=== PATIENT | female | born 1965 | race Caucasian/White ===

== ENCOUNTER 2019-11-07 17:01 | Emergency (ER) | payer MEDICAID ==
[~2019-11-07] VITALS: Ht 172.7 cm; Wt 104.0 kg
[~2019-11-07 17:01] MED LIST: FOND2.5D3 SUBCUT; HYDR-4353 PO; LEVO200T42 PO; VENL150C2 PO
--- NOTE | 2019-11-07 19:50 | NUR ---
PT TO CT
[2019-11-07 20:29] LABS: BASOPHILS % (AUTO) 0.5 % (0-1); EOSINOPHILS # (AUTO) 0.1 X10'3 (0-0.9); EOSINOPHILS % (AUTO) 1.4 % (0-6); HEMATOCRIT 43.4 % (35.0-45.0); HEMOGLOBIN 14.7 g/dl (12.0-16.0); LYMPHOCYTES # (AUTO) 1.1 X10'3 (1.1-4.8); LYMPHOCYTES % (AUTO) 16.2 % (21-51); MEAN CORPUSCULAR HEMOGLOBIN 30.9 PG (27.0-31.0); MEAN CORPUSCULAR HGB CONC 33.8 g/dL (33.0-36.5); MEAN CORPUSCULAR VOLUME 91.2 FL (78-98); MEAN PLATELET VOLUME 8.9 FL (7.4-10.4); MONOCYTES # (AUTO) 0.8 X10'3 (0-0.9); MONOCYTES % (AUTO) 11.1 % (2-12); NEUTROPHILS # (AUTO) 4.8 X10'3 (1.8-7.7); NEUTROPHILS % (AUTO) 70.8 % (42-75); PLATELET COUNT 147 X10'3 (140-440); RED BLOOD COUNT 4.76 X10'6 (4.20-5.60); RED CELL DISTRIBUTION WIDTH 15.2 % (11.5-14.5); WHITE BLOOD COUNT 6.8 X10'3 (4.5-11.0)
[2019-11-07 20:48] LABS: ALANINE AMINOTRANSFERASE 28 U/L (12-78); ALBUMIN 3.7 G/DL (3.4-5.0); ALKALINE PHOSPHATASE 110 IU/L (46-116); ANION GAP 7 (8-16); ASPARTATE AMINO TRANSFERASE 23 U/L (10-37); BILIRUBIN,TOTAL 0.8 MG/DL (0.1-1.0); BLOOD UREA NITROGEN 11 MG/DL (7-18); BUN/CREATININE RATIO 14.1 (6.6-38.0); CALCIUM 8.9 MG/DL (8.5-10.1); CHLORIDE 106 MMOL/L (99-107); CREATININE 0.78 MG/DL (0.40-0.90); GLUCOSE 76 MG/DL (70-104); SODIUM 141 MMOL/L (135-145); TOTAL CARBON DIOXIDE 28.3 MMOL/L (24-32); TOTAL PROTEIN 7.5 G/DL (6.4-8.2); eGFR 77 ML/MIN
--- NOTE | 2019-11-07 21:01 | NUR ---
pt wanting to leave discharge is up awaiting paper work .
[2019-11-07 21:04] VITALS: BP 141/85
== END 2019-11-07 23:32 | disposition home or self-care (01) ==
LOC: ER 17:01
DX: S01.01XA Laceration without foreign body of scalp, initial encounter (principal); R55 Syncope and collapse; G89.29 Other chronic pain; Z98.0 Intestinal bypass and anastomosis status; Z98.890 Other specified postprocedural states; Z88.8 Allergy status to other drugs, medicaments and biological substances; Z79.899 Other long term (current) drug therapy; W18.11XA Fall from or off toilet without subsequent striking against object, initial encounter; Y93.89 Activity, other specified; Y92.89 Other specified places as the place of occurrence of the external cause; Y99.8 Other external cause status
CPT/HCPCS: 36415; 70450; 80053; 84484; 85025; 93005; 99285

== ENCOUNTER 2020-01-31 15:33 | Emergency (ER) | payer MEDICAID ==
[~2020-01-31] VITALS: Ht 172.7 cm; Wt 104.5 kg
[2020-01-31 16:07] VITALS: BP 140/90
[2020-01-31] MEDS ORDERED: HYDROcodone/acetaminophen 10/325mg tab PO ONE (17:25)
--- NOTE | 2020-01-31 17:28 | NUR ---
ADMIN PAIN MEDS ORDERED. LAB DRAW DONE.
[2020-01-31 17:39] LABS: BASOPHILS % (AUTO) 0.5 % (0-1); EOSINOPHILS # (AUTO) 0.1 X10'3 (0-0.9); HEMATOCRIT 43.4 % (35.0-45.0); HEMOGLOBIN 14.5 g/dl (12.0-16.0); LYMPHOCYTES # (AUTO) 1.2 X10'3 (1.1-4.8); LYMPHOCYTES % (AUTO) 16.2 % (21-51); MEAN CORPUSCULAR HEMOGLOBIN 30.9 PG (27.0-31.0); MEAN CORPUSCULAR HGB CONC 33.4 g/dL (33.0-36.5); MEAN CORPUSCULAR VOLUME 92.7 FL (78-98); MEAN PLATELET VOLUME 8.7 FL (7.4-10.4); MONOCYTES # (AUTO) 0.7 X10'3 (0-0.9); MONOCYTES % (AUTO) 9.7 % (2-12); NEUTROPHILS # (AUTO) 5.3 X10'3 (1.8-7.7); NEUTROPHILS % (AUTO) 71.6 % (42-75); PLATELET COUNT 167 X10'3 (140-440); RED BLOOD COUNT 4.68 X10'6 (4.20-5.60); RED CELL DISTRIBUTION WIDTH 13.9 % (11.5-14.5); WHITE BLOOD COUNT 7.5 X10'3 (4.5-11.0)
[2020-01-31 17:50] LABS: PARTIAL THROMBOPLASTIN TIME 23 SECONDS (22-32)
[2020-01-31 17:52] LABS: ALANINE AMINOTRANSFERASE 34 U/L (12-78); ALBUMIN 3.3 G/DL (3.4-5.0); ALBUMIN/GLOBULIN RATIO 0.9 (1.1-1.5); ALKALINE PHOSPHATASE 118 IU/L (46-116); ANION GAP 7 (8-16); ASPARTATE AMINO TRANSFERASE 29 U/L (10-37); BILIRUBIN,TOTAL 0.6 MG/DL (0.1-1.0); BLOOD UREA NITROGEN 7 MG/DL (7-18); BUN/CREATININE RATIO 7.1 (6.6-38.0); CALCIUM 8.3 MG/DL (8.5-10.1); CHLORIDE 107 MMOL/L (99-107); CREATININE 0.99 MG/DL (0.40-0.90); GLUCOSE 93 MG/DL (70-104); POTASSIUM 4.1 MMOL/L (3.5-5.1); SODIUM 142 MMOL/L (135-145); TOTAL CARBON DIOXIDE 28.1 MMOL/L (24-32); TOTAL PROTEIN 6.8 G/DL (6.4-8.2); eGFR 58 ML/MIN
[2020-01-31] MEDS ORDERED: apixaban 5mg tablet PO STA (18:50)
[2020-01-31] MEDS ORDERED: APIX5TAB3 PO ×2 (18:53)
[2020-01-31] MEDS ORDERED: HYDR-4353 PO (19:08)
== END 2020-01-31 19:12 | disposition home or self-care (01) ==
LOC: ER 15:34
DX: S70.11XA Contusion of right thigh, initial encounter (principal); M79.604 Pain in right leg; M79.89 Other specified soft tissue disorders; G89.29 Other chronic pain; F17.200 Nicotine dependence, unspecified, uncomplicated; Z98.890 Other specified postprocedural states; Z72.89 Other problems related to lifestyle; Z88.6 Allergy status to analgesic agent; Z79.899 Other long term (current) drug therapy; W01.0XXA Fall on same level from slipping, tripping and stumbling without subsequent striking against object, initial encounter; Y93.89 Activity, other specified; Y92.89 Other specified places as the place of occurrence of the external cause; Y99.8 Other external cause status
CPT/HCPCS: 36415; 80053; 85025; 85610; 85730; 93971; 99284

== ENCOUNTER 2020-03-21 04:13 | Emergency (ER) | payer MEDICAID ==
[~2020-03-21] VITALS: Ht 172.7 cm; Wt 100.0 kg
[~2020-03-21 04:13] MED LIST changes: +APIX5TAB3 PO
[2020-03-21] MEDS ORDERED: diphenhydrAMINE 50 mg/ml inj IV ONE (04:40)
[2020-03-21] MEDS ORDERED: LORazepam 2 mg/ml vial IV ONE (04:40)
[2020-03-21] MEDS ORDERED: normal saline 1000ML IV soln IVB ONE (04:40)
[2020-03-21] MEDS ORDERED: metoclopramide 5 mg/ml inj IV ONE (04:40)
[2020-03-21 05:22] LABS: BASOPHILS % (AUTO) 0.4 % (0-1); EOSINOPHILS # (AUTO) 0.1 X10'3 (0-0.9); EOSINOPHILS % (AUTO) 1.4 % (0-6); HEMATOCRIT 46.7 % (35.0-45.0); HEMOGLOBIN 15.3 g/dl (12.0-16.0); LYMPHOCYTES # (AUTO) 1.6 X10'3 (1.1-4.8); LYMPHOCYTES % (AUTO) 20.5 % (21-51); MEAN CORPUSCULAR HGB CONC 32.8 g/dL (33.0-36.5); MEAN CORPUSCULAR VOLUME 94.6 FL (78-98); MEAN PLATELET VOLUME 9.1 FL (7.4-10.4); MONOCYTES # (AUTO) 0.7 X10'3 (0-0.9); MONOCYTES % (AUTO) 9.1 % (2-12); NEUTROPHILS # (AUTO) 5.3 X10'3 (1.8-7.7); NEUTROPHILS % (AUTO) 68.6 % (42-75); PLATELET COUNT 256 X10'3 (140-440); RED BLOOD COUNT 4.93 X10'6 (4.20-5.60); RED CELL DISTRIBUTION WIDTH 14.8 % (11.5-14.5); WHITE BLOOD COUNT 7.8 X10'3 (4.5-11.0)
[2020-03-21 05:31] LABS: ALANINE AMINOTRANSFERASE 26 U/L (12-78); ALBUMIN 3.6 G/DL (3.4-5.0); ALBUMIN/GLOBULIN RATIO 0.9 (1.1-1.5); ALKALINE PHOSPHATASE 115 IU/L (46-116); ANION GAP 19 (8-16); ASPARTATE AMINO TRANSFERASE 25 U/L (10-37); BILIRUBIN,TOTAL 0.4 MG/DL (0.1-1.0); BLOOD UREA NITROGEN 10 MG/DL (7-18); BUN/CREATININE RATIO 10.5 (6.6-38.0); CALCIUM 8.5 MG/DL (8.5-10.1); CHLORIDE 103 MMOL/L (99-107); CREATININE 0.95 MG/DL (0.40-0.90); GLUCOSE 87 MG/DL (70-104); LIPASE 178 U/L (73-393); POTASSIUM 3.3 MMOL/L (3.5-5.1); SODIUM 138 MMOL/L (135-145); TOTAL CARBON DIOXIDE 16.2 MMOL/L (24-32); TOTAL PROTEIN 7.7 G/DL (6.4-8.2); eGFR 61 ML/MIN
[2020-03-21 06:29] VITALS: BP 135/95
== END 2020-03-21 06:30 | disposition home or self-care (01) ==
LOC: ER 04:14
DX: R19.7 Diarrhea, unspecified (principal); R11.0 Nausea; R10.9 Unspecified abdominal pain; G89.29 Other chronic pain; F17.210 Nicotine dependence, cigarettes, uncomplicated; Z90.49 Acquired absence of other specified parts of digestive tract; Z98.890 Other specified postprocedural states; Z88.8 Allergy status to other drugs, medicaments and biological substances; Z79.01 Long term (current) use of anticoagulants; Z79.899 Other long term (current) drug therapy; Z72.89 Other problems related to lifestyle
CPT/HCPCS: 36415; 74176; 80053; 83690; 84145; 85025; 96361; 96374; 96375; 99284; J1200; J2060; J2765; J7030

== ENCOUNTER 2020-04-16 18:09 | Emergency (ER) | payer MEDICAID ==
[~2020-04-16] VITALS: Ht 172.7 cm; Wt 99.1 kg
[2020-04-16 19:07] LABS: BASOPHILS % (AUTO) 0.7 % (0-1); EOSINOPHILS % (AUTO) 0.7 % (0-6); HEMATOCRIT 46.1 % (35.0-45.0); HEMOGLOBIN 15.5 g/dl (12.0-16.0); LYMPHOCYTES % (AUTO) 14.2 % (21-51); MEAN CORPUSCULAR HEMOGLOBIN 32.1 PG (27.0-31.0); MEAN CORPUSCULAR HGB CONC 33.6 g/dL (33.0-36.5); MEAN CORPUSCULAR VOLUME 95.5 FL (78-98); MEAN PLATELET VOLUME 9.2 FL (7.4-10.4); MONOCYTES # (AUTO) 0.8 X10'3 (0-0.9); MONOCYTES % (AUTO) 12.1 % (2-12); NEUTROPHILS % (AUTO) 72.3 % (42-75); PLATELET COUNT 156 X10'3 (140-440); RED BLOOD COUNT 4.83 X10'6 (4.20-5.60); RED CELL DISTRIBUTION WIDTH 14.3 % (11.5-14.5); WHITE BLOOD COUNT 6.8 X10'3 (4.5-11.0)
[2020-04-16 19:21] LABS: ALANINE AMINOTRANSFERASE 37 U/L (12-78); ALBUMIN 3.7 G/DL (3.4-5.0); ALKALINE PHOSPHATASE 137 IU/L (46-116); ANION GAP 9 (8-16); ASPARTATE AMINO TRANSFERASE 26 U/L (10-37); BLOOD UREA NITROGEN 7 MG/DL (7-18); BUN/CREATININE RATIO 8.1 (6.6-38.0); CALCIUM 9.2 MG/DL (8.5-10.1); CHLORIDE 104 MMOL/L (99-107); CREATININE 0.86 MG/DL (0.40-0.90); GLUCOSE 102 MG/DL (70-104); LIPASE 68 U/L (73-393); SODIUM 142 MMOL/L (135-145); TOTAL CARBON DIOXIDE 28.7 MMOL/L (24-32); TOTAL PROTEIN 7.3 G/DL (6.4-8.2); eGFR 69 ML/MIN
[2020-04-16 20:24] LABS: CLARITY,URINE CLEAR (Clear); COLOR,URINE YELLOW (Yellow); GLUCOSE, URINE NEGATIVE (Neg); KETONES,URINE NEGATIVE (Neg); LEUKOCYTE ESTERASE ,URINE NEGATIVE (Neg); NITRITES, URINE NEGATIVE (Neg); OCCULT BLOOD,URINE NEGATIVE (Neg); PH,URINE 5.5 (4.8-8.0); PROTEIN,URINE NEGATIVE (Neg); UROBILINOGEN,URINE 0.2 E.U/dL (0.2-1.0)
[2020-04-16 20:26] LABS: UA COLLECTION TYPE CLN CATCH MIDSTREAM
[2020-04-16] MEDS ORDERED: ondansetron 4mg rapidly disintigrating tab PO ONE (20:35)
[2020-04-16] MEDS ORDERED: morphine 4 MG/ML inj SYRINge IV ONE (20:35)
[2020-04-16] MEDS ORDERED: normal saline 1000ML IV soln IVB ONE (20:35)
[2020-04-16] MEDS ORDERED: iohexol 300mg/ml 100ml inj. ONE (21:24)
[2020-04-16] MEDS ORDERED: HYDR-3965 PO (23:00)
[2020-04-16] MEDS ORDERED: ONDA4TAB6 PO (23:00)
[2020-04-16 23:12] VITALS: BP 162/84
== END 2020-04-16 23:00 | disposition home or self-care (01) ==
LOC: ER 18:09
DX: R10.9 Unspecified abdominal pain (principal); R11.2 Nausea with vomiting, unspecified; R42 Dizziness and giddiness; G89.29 Other chronic pain; Z98.0 Intestinal bypass and anastomosis status; Z98.890 Other specified postprocedural states; Z88.8 Allergy status to other drugs, medicaments and biological substances; Z79.01 Long term (current) use of anticoagulants; Z79.899 Other long term (current) drug therapy
CPT/HCPCS: 36415; 74177; 80053; 81003; 83690; 85025; 96361; 96374; 99285; J2270; J7030; Q9967

== ENCOUNTER 2021-09-24 23:10 | Emergency (ER) | payer MEDICAID ==
[~2021-09-24] VITALS: Ht 172.7 cm; Wt 86.4 kg
[~2021-09-24 23:10] MED LIST changes: +ONDA4TAB6 PO
[2021-09-25 01:32] VITALS: BP 152/76
[2021-09-25 01:56] LABS: BASOPHILS # (AUTO) 0.1 X10'3 (0-0.2); BASOPHILS % (AUTO) 1.1 % (0-1); EOSINOPHILS # (AUTO) 0.1 X10'3 (0-0.9); EOSINOPHILS % (AUTO) 1.2 % (0-6); HEMATOCRIT 38.1 % (35.0-45.0); HEMOGLOBIN 12.5 g/dl (12.0-16.0); LYMPHOCYTES # (AUTO) 1.4 X10'3 (1.1-4.8); LYMPHOCYTES % (AUTO) 19.2 % (21-51); MEAN CORPUSCULAR HEMOGLOBIN 27.8 PG (27.0-31.0); MEAN CORPUSCULAR HGB CONC 32.8 g/dL (33.0-36.5); MEAN CORPUSCULAR VOLUME 84.6 FL (78-98); MEAN PLATELET VOLUME 10.1 FL (7.4-10.4); MONOCYTES # (AUTO) 0.6 X10'3 (0-0.9); MONOCYTES % (AUTO) 8.7 % (2-12); NEUTROPHILS % (AUTO) 69.8 % (42-75); PLATELET COUNT 198 X10'3 (140-440); RED CELL DISTRIBUTION WIDTH 14.5 % (11.5-14.5); WHITE BLOOD COUNT 7.2 X10'3 (4.5-11.0)
[2021-09-25 02:14] LABS: ALBUMIN 3.5 G/DL (3.4-5.0); ANION GAP 7 (8-16); BLOOD UREA NITROGEN 10 MG/DL (7-18); BUN/CREATININE RATIO 14.5 (6.6-38.0); CALCIUM 9.2 MG/DL (8.5-10.1); CHLORIDE 107 MMOL/L (99-107); CREATININE 0.69 MG/DL (0.40-0.90); GLUCOSE 83 MG/DL (70-104); POTASSIUM 3.3 MMOL/L (3.5-5.1); SODIUM 143 MMOL/L (135-145); TOTAL CARBON DIOXIDE 28.7 MMOL/L (24-32); eGFR 88 ML/MIN
[2021-09-25 02:17] LABS: APTT 26 SECONDS (22-32)
[2021-09-25] MEDS ORDERED: ondansetron/PF 4mg/2ml inj IV ONE (03:05)
[2021-09-25] MEDS ORDERED: morphine 4 MG/ML inj SYRINge IV ONE (03:05)
[2021-09-25] MEDS ORDERED: LIDOcaine 1% W/epiNEPHrine 1:100,000 20ml vial IJ ONE (03:15)
[2021-09-25] MEDS ORDERED: LIDOcaine 1% W/epiNEPHrine 1:200,000 10ml vial IJ ONE (03:15)
[2021-09-25 03:37] LABS: C-REACTIVE PROTEIN 0.32 MG/DL (0.0-0.5)
[2021-09-25] MEDS ORDERED: SULF1TAB49 PO ×2 (04:28→04:44)
[2021-09-25] MEDS ORDERED: sulfamethoxazole/trimethoprim DS (800/160mg) tablet PO ONE (04:30)
== END 2021-09-25 04:53 | disposition home or self-care (01) ==
LOC: ER 23:10
DX: L02.212 Cutaneous abscess of back [any part, except buttock and flank] (principal); M25.561 Pain in right knee; G89.29 Other chronic pain; Z98.890 Other specified postprocedural states; Z88.8 Allergy status to other drugs, medicaments and biological substances; Z79.2 Long term (current) use of antibiotics; Z79.899 Other long term (current) drug therapy
CPT/HCPCS: 10060; 36415; 80048; 85025; 85610; 85651; 85730; 86140; 96374; 96375; 99284; J2270; J2405

== ENCOUNTER 2022-09-14 13:26 | Outpatient (CLI) | payer MEDICAID ==
[~2022-09-14] VITALS: Ht 172.7 cm; Wt 95.3 kg
[~2022-09-14 13:26] MED LIST changes: +SULF1TAB49 PO; -VENL150C2 PO; +VENL150C4 PO
[2022-09-14] MEDS ORDERED: MECO10005 (14:29)
[2022-09-14] MEDS ORDERED: MULT-1133 PO (14:29)
[2022-09-14 14:39] LABS: BASOPHILS # (AUTO) 0.1 X10'3 (0-0.2); BASOPHILS % (AUTO) 0.8 % (0-1); EOSINOPHILS # (AUTO) 0.1 X10'3 (0-0.9); LYMPHOCYTES # (AUTO) 1.3 X10'3 (1.1-4.8); LYMPHOCYTES % (AUTO) 18.3 % (21-51); MEAN CORPUSCULAR HEMOGLOBIN 26.6 PG (27.0-31.0); MEAN CORPUSCULAR VOLUME 83.1 FL (78-98); MEAN PLATELET VOLUME 9.4 FL (7.4-10.4); MONOCYTES # (AUTO) 0.7 X10'3 (0-0.9); MONOCYTES % (AUTO) 9.3 % (2-12); NEUTROPHILS % (AUTO) 69.6 % (42-75); PRE OP HEMATOCRIT 38.8 % (35.0-45.0); PRE OP HEMOGLOBIN 12.4 g/dL (12.0-16.0); PRE OP PLATELET COUNT 189 X10'3 (140-440); RED BLOOD COUNT 4.67 X10'6 (4.20-5.60); RED CELL DISTRIBUTION WIDTH 14.5 % (11.5-14.5)
[2022-09-14 14:56] LABS: ALBUMIN 3.7 G/DL (3.4-5.0); ALBUMIN/GLOBULIN RATIO 1.1 (1.1-1.5); ALKALINE PHOSPHATASE 141 IU/L (46-116); BLOOD UREA NITROGEN 12 MG/DL (7-18); BUN/CREATININE RATIO 14.5 (6.6-38.0); CALCIUM 8.9 MG/DL (8.5-10.1); CHLORIDE 104 MMOL/L (99-107); CREATININE 0.83 MG/DL (0.40-0.90); PRE OP ALT 18 U/L (30-65); PRE OP ANION GAP 6 (8-16); PRE OP AST 21 U/L (10-37); PRE OP BILIRUB, TOTAL 0.5 MG/DL (0.0-1.0); PRE OP GLUCOSE 87 MG/DL (70-104); PRE OP POTASSIUM 4.1 MMOL/L (3.4-5.1); PRE OP SODIUM 141 MMOL/L (135-145); TOTAL CARBON DIOXIDE 30.7 MMOL/L (24-32); eGFR 71 ML/MIN
[2022-09-20] MEDS ORDERED: CYAN100T39 PO (20:22)
[2022-09-20] MEDS ORDERED: APIX5TAB3 PO (20:23)
[2022-09-21] MEDS ORDERED: ringers solution, lacted 1,000 ML IV SCH (05:00)
[2022-09-21] MEDS ORDERED: famotidine 20mg tablet PO ONE (05:30)
[2022-09-21] MEDS ORDERED: ceFAZolin inj. 2,000 MG in dextrose 5%-water 100 ML IV ONE (05:30)
== END 2022-09-14 23:59 | disposition home or self-care (01) ==
LOC: LAB 13:26 → EDSTATUS 09-21 09:30
PROVIDERS: ATTEND Orthopaedic Surgery Hand Surgery
DX: Z01.818 Encounter for other preprocedural examination (principal); G56.01 Carpal tunnel syndrome, right upper limb; M65.331 Trigger finger, right middle finger; F17.210 Nicotine dependence, cigarettes, uncomplicated; Z88.8 Allergy status to other drugs, medicaments and biological substances; Z90.710 Acquired absence of both cervix and uterus; Z98.84 Bariatric surgery status; Z98.890 Other specified postprocedural states; Z82.3 Family history of stroke; Z83.3 Family history of diabetes mellitus
CPT/HCPCS: 36415; 80053; 85025; 93005; J0690; J7060; J7120

== ENCOUNTER 2022-11-26 07:54 | Day surgery (SDC) | payer MEDICAID ==
[2022-11-23 15:52] LABS: BASOPHILS # (AUTO) 0.1 X10'3 (0-0.2); BASOPHILS % (AUTO) 0.6 % (0-1); EOSINOPHILS # (AUTO) 0.1 X10'3 (0-0.9); EOSINOPHILS % (AUTO) 1.7 % (0-6); LYMPHOCYTES # (AUTO) 1.3 X10'3 (1.1-4.8); MEAN CORPUSCULAR HGB CONC 32.6 g/dL (33.0-36.5); MEAN CORPUSCULAR VOLUME 82.9 FL (78-98); MONOCYTES # (AUTO) 0.7 X10'3 (0-0.9); MONOCYTES % (AUTO) 8.8 % (2-12); NEUTROPHILS # (AUTO) 6.3 X10'3 (1.8-7.7); NEUTROPHILS % (AUTO) 73.9 % (42-75); PRE OP HEMATOCRIT 39.5 % (35.0-45.0); PRE OP HEMOGLOBIN 12.9 g/dL (12.0-16.0); PRE OP PLATELET COUNT 179 X10'3 (140-440); RED BLOOD COUNT 4.77 X10'6 (4.20-5.60); RED CELL DISTRIBUTION WIDTH 16.2 % (11.5-14.5)
[2022-11-23 15:55] LABS: ALBUMIN 3.3 G/DL (3.4-5.0); ALBUMIN/GLOBULIN RATIO 0.9 (1.1-1.5); ALKALINE PHOSPHATASE 159 IU/L (46-116); BLOOD UREA NITROGEN 9 MG/DL (7-18); BUN/CREATININE RATIO 12.5 (10.0-20.0); CHLORIDE 105 MMOL/L (99-107); CREATININE 0.72 MG/DL (0.40-0.90); PRE OP ALT 28 U/L (30-65); PRE OP ANION GAP 5 (8-16); PRE OP AST 29 U/L (10-37); PRE OP BILIRUB, TOTAL 0.6 MG/DL (0.0-1.0); PRE OP GLUCOSE 103 MG/DL (70-104); PRE OP POTASSIUM 4.3 MMOL/L (3.4-5.1); PRE OP SODIUM 140 MMOL/L (135-145); TOTAL CARBON DIOXIDE 29.6 MMOL/L (24-32); TOTAL PROTEIN 6.8 G/DL (6.4-8.2); eGFR 83 ML/MIN
[2022-11-26] VITALS (11 sets, daily range): BP systolic 110–130; BP diastolic 53–72
[~2022-11-26] VITALS: Ht 172.7 cm; Wt 95.2 kg
[2022-11-26] MEDS: cefazolin 2gm/D5W 100mL 100 ML IV ONE (05:30)
[~2022-11-26 07:54] MED LIST changes: -FOND2.5D3 SUBCUT; -HYDR-4353 PO; -ONDA4TAB6 PO; -SULF1TAB49 PO
[2022-11-26] MEDS ORDERED: morphine 4 MG/ML inj SYRINge IV PRN (07:55)
[2022-11-26] MEDS ORDERED: ringers solution, lacted 1,000 ML IV SCH (07:55)
[2022-11-26] MEDS ORDERED: labetalol 5mg/ml 20ml inj. IV PRN (07:55)
[2022-11-26] MEDS ORDERED: ondansetron/PF 4mg/2ml inj IV PRN (07:55)
[2022-11-26] MEDS ORDERED: morphine 2 MG/ML inj. syringe IV PRN (07:55)
[2022-11-26] MEDS: famotidine 20mg tablet PO ONE (09:51)
[2022-11-26] MEDS: ringers solution, lacted 1,000 ML IV SCH (09:52)
[2022-11-26] MEDS: BUPIVAcaine/PF 2.5 mg/ml (0.25%) 30ml vial ONE (10:13)
[2022-11-26] MEDS ORDERED: fentaNYL/PF 50MCG/1 ML 2ML syringe ONE (10:33)
[2022-11-26] MEDS ORDERED: midazolam 1 mg/ML 2ml injection ONE ×2 (10:33→10:41)
[2022-11-26] MEDS ORDERED: LIDOcaine 0.5% (5mg/ml) 50ml vial ONE (10:48)
--- NOTE | 2022-11-26 10:59 | NUR ---
Received from OR via [facility] TO RECOVERY ROOM 6, accompanied by Anesthesiologist DR GARCIA and report given by Anesthesiolgist.PT PRESENTS WITH PIV 20G LEFT WRIST, RIGHT HAND DRESSING CDI,VSS. Addendum: 11/26/22 at 1112 by Fernanda Parham RN, RN Amended: Links added.
--- NOTE | 2022-11-26 12:29 | NUR ---
ABLE TO SAFELY AMBULATE AND TRANSFER SELF. IV TAKEN OUT WITHOUT ANY COMPLICATIONS. ALL DISCHARGE INSTRUCTIONS COVERED WITH PATIENT AND ALL QUESTIONS ANSWERED. PATIENT TAKEN OUT VIA WHEELCHAIR TO PERSONAL VEHICLE WHERE FAMILY/FRIEND DROVE PATIENT HOME. Addendum: 11/26/22 at 1245 by Fernanda Parham RN, RN Amended: Links added.
== END 2022-11-26 12:29 | disposition home or self-care (01) ==
LOC: PAS 07:54
PROVIDERS: ATTEND Orthopaedic Surgery Hand Surgery
DX: G56.01 Carpal tunnel syndrome, right upper limb (principal); M65.331 Trigger finger, right middle finger; M65.841 Other synovitis and tenosynovitis, right hand; Z79.899 Other long term (current) drug therapy; Z90.49 Acquired absence of other specified parts of digestive tract; Z88.8 Allergy status to other drugs, medicaments and biological substances; E03.9 Hypothyroidism, unspecified; F17.210 Nicotine dependence, cigarettes, uncomplicated; M19.90 Unspecified osteoarthritis, unspecified site; Z86.711 Personal history of pulmonary embolism; Z86.718 Personal history of other venous thrombosis and embolism
CPT/HCPCS: 26055; 29848; 36415; 80053; 82948; 85025; A6222; J0690; J2250; J3010; J3490; J7030; J7120; Z7506; Z7512; A4215; A7000

== ENCOUNTER 2023-04-19 07:10 | Day surgery (SDC) | payer MEDICAID ==
[2023-04-12 11:03] LABS: MEAN CORPUSCULAR HEMOGLOBIN 26.4 PG (27.0-31.0); PRE OP HEMOGLOBIN 12.3 g/dL (12.0-16.0)
[2023-04-12 11:04] LABS: BASOPHILS % (AUTO) 0.6 % (0-1); EOSINOPHILS # (AUTO) 0.2 X10'3 (0-0.9); EOSINOPHILS % (AUTO) 2.3 % (0-6); LYMPHOCYTES # (AUTO) 1.3 X10'3 (1.1-4.8); LYMPHOCYTES % (AUTO) 18.1 % (21-51); MEAN CORPUSCULAR HGB CONC 31.6 g/dL (33.0-36.5); MEAN CORPUSCULAR VOLUME 83.7 FL (78-98); MEAN PLATELET VOLUME 9.1 FL (7.4-10.4); MONOCYTES # (AUTO) 0.7 X10'3 (0-0.9); MONOCYTES % (AUTO) 10.3 % (2-12); NEUTROPHILS % (AUTO) 68.7 % (42-75); PRE OP PLATELET COUNT 174 X10'3 (140-440); PRE OP WHITE BLOOD COUNT 7.3 10'3 (4.8-10.8); RED BLOOD COUNT 4.66 X10'6 (4.20-5.60); RED CELL DISTRIBUTION WIDTH 15.1 % (11.5-14.5)
[2023-04-12 11:17] LABS: ALBUMIN 3.4 G/DL (3.4-5.0); ALBUMIN/GLOBULIN RATIO 0.9 (1.1-1.5); ALKALINE PHOSPHATASE 137 IU/L (46-116); BLOOD UREA NITROGEN 12 MG/DL (7-18); CALCIUM 8.6 MG/DL (8.5-10.1); CHLORIDE 107 MMOL/L (99-107); CREATININE 0.75 MG/DL (0.40-0.90); PRE OP ALT 28 U/L (30-65); PRE OP ANION GAP 8 (8-16); PRE OP AST 24 U/L (10-37); PRE OP BILIRUB, TOTAL 0.5 MG/DL (0.0-1.0); PRE OP GLUCOSE 97 MG/DL (70-104); PRE OP POTASSIUM 3.8 MMOL/L (3.4-5.1); PRE OP SODIUM 141 MMOL/L (135-145); TOTAL CARBON DIOXIDE 26.5 MMOL/L (24-32); eGFR 79 ML/MIN
[~2023-04-19] VITALS: Ht 172.7 cm; Wt 95.6 kg
[~2023-04-19 07:10] MED LIST changes: +BUPIVAcaine/PF 2.5mg/ml (0.25%) 10ml vial ONE; +albuterol 2.5 MG/3 ML nebule NEB ONE; +cefazolin 2gm/D5W 100mL 100 ML IV ONE; +famotidine 20mg tablet PO ONE; +ringers solution, lacted 1,000 ML IV SCH
[2023-04-19 09:00] VITALS: BP 121/73; PULSE 78; RESP 14; TEMP 97.2; O2SAT 100
[2023-04-19] MEDS ORDERED: MIDAZolam 5mg/ml 2ml vial IV ONE (09:20)
[2023-04-19] MEDS ORDERED: fentaNYL/PF 50MCG/1 ML 2ML syringe ONE (10:08)
[2023-04-19] MEDS ORDERED: MIDAZolam 1 MG/ML 5ML VIAL ONE (10:09)
[2023-04-19] MEDS ORDERED: LIDOcaine 0.5% (5mg/ml) 50ml vial ONE (10:24)
[2023-04-19 10:31] VITALS: BP 110/57; PULSE 75; RESP 16; O2SAT 97
--- NOTE | 2023-04-19 10:31 | NUR ---
Received from OR via [facility], accompanied by Anesthesiologist and report given by JOSE Anesthesiologist. PATIENT ALERT & AWAKE, DENIES PAIN, V/S WNL, PIV 20G TO RIGHT HAND, LEFT WRIST DRESSING C/D/I. ICE AND ELEVATED LUE. Addendum: 04/19/23 at 1051 by You Mooney RN Amended: Links added.
[2023-04-19 10:40] VITALS: BP 112/64; PULSE 84; RESP 20; O2SAT 95
[2023-04-19 10:50] VITALS: BP 121/64; PULSE 77; RESP 12; O2SAT 96
[2023-04-19 11:00] VITALS: BP 109/66; PULSE 73; RESP 14; O2SAT 96
--- NOTE | 2023-04-19 11:01 | NUR ---
ALL DISCHARGE CRITERIA HAS BEEN MET. VSS, PAIN AT A TOLERABLE LEVEL, ABLE TO SAFELY AMBULATE AND TRANSFER SELF. IV TAKEN OUT WITHOUT ANY COMPLICATIONS. ALL DISCHARGE INSTRUCTIONS COVERED WITH PATIENT AND ALL QUESTIONS ANSWERED. PATIENT TAKEN OUT VIA WHEELCHAIR WITH ALL BELONGINGS TO PERSONAL VEHICLE WHERE FRIEND DROVE PATIENT HOME. Addendum: 04/19/23 at 1141 by You Mooney RN Amended: Links added.
== END 2023-04-19 11:01 | disposition home or self-care (01) ==
LOC: PAS 07:10
PROVIDERS: ATTEND Orthopaedic Surgery Hand Surgery
DX: G56.02 Carpal tunnel syndrome, left upper limb (principal); E03.9 Hypothyroidism, unspecified; M19.90 Unspecified osteoarthritis, unspecified site; E66.9 Obesity, unspecified; Z68.32 Body mass index [BMI] 32.0-32.9, adult; Z79.899 Other long term (current) drug therapy; Z88.8 Allergy status to other drugs, medicaments and biological substances; Z87.891 Personal history of nicotine dependence; Z90.49 Acquired absence of other specified parts of digestive tract; Z90.710 Acquired absence of both cervix and uterus; Z98.890 Other specified postprocedural states; Z86.718 Personal history of other venous thrombosis and embolism; Z86.711 Personal history of pulmonary embolism; Z79.01 Long term (current) use of anticoagulants
CPT/HCPCS: 36415; 64721; 80053; 82948; 85025; 93005; J0690; J2250; J3010; J3490; J7030; J7120; Z7506; Z7512; A4215; A7000

== ENCOUNTER 2023-08-05 04:27 | Inpatient (IN) | payer MEDICAID ==
[2023-08-05] VITALS (9 sets, daily range): BP systolic 124–144; BP diastolic 55–73; PULSE 64–89; RESP 10–27; TEMP 96.8; O2SAT 97–100
[~2023-08-05] VITALS: Ht 172.7 cm; Wt 107.0 kg
[~2023-08-05 04:27] MED LIST changes: -BUPIVAcaine/PF 2.5mg/ml (0.25%) 10ml vial ONE; -albuterol 2.5 MG/3 ML nebule NEB ONE; -cefazolin 2gm/D5W 100mL 100 ML IV ONE; -famotidine 20mg tablet PO ONE; -ringers solution, lacted 1,000 ML IV SCH
[2023-08-05] MEDS ORDERED: normal saline 1000ml 1,000 ML IV ONE ×3 (04:50→06:30)
[2023-08-05 04:52] LABS: BASOPHILS # (AUTO) 0.1 X10'3 (0-0.2); BASOPHILS % (AUTO) 0.8 % (0-1); EOSINOPHILS # (AUTO) 0.2 X10'3 (0-0.9); EOSINOPHILS % (AUTO) 1.8 % (0-6); HEMATOCRIT 41.5 % (35.0-45.0); HEMOGLOBIN 13.3 g/dl (12.0-16.0); LYMPHOCYTES # (AUTO) 3.5 X10'3 (1.1-4.8); LYMPHOCYTES % (AUTO) 33.9 % (21-51); MEAN CORPUSCULAR HEMOGLOBIN 27.2 PG (27.0-31.0); MEAN CORPUSCULAR HGB CONC 32.1 g/dL (33.0-36.5); MEAN CORPUSCULAR VOLUME 84.7 FL (78-98); MEAN PLATELET VOLUME 8.5 FL (7.4-10.4); MONOCYTES % (AUTO) 9.9 % (2-12); NEUTROPHILS # (AUTO) 5.5 X10'3 (1.8-7.7); NEUTROPHILS % (AUTO) 53.6 % (42-75); PLATELET COUNT 198 X10'3 (140-440); RED CELL DISTRIBUTION WIDTH 15.9 % (11.5-14.5); WHITE BLOOD COUNT 10.2 X10'3 (4.5-11.0)
[2023-08-05] MEDS ORDERED: magnesium 2GM in 50ml NS 50 ML IV ONE (05:00)
[2023-08-05 05:04] LABS: ALANINE AMINOTRANSFERASE 18 U/L (12-78); ALBUMIN 3.4 G/DL (3.4-5.0); ALBUMIN/GLOBULIN RATIO 0.9 (1.1-1.5); ALKALINE PHOSPHATASE 107 IU/L (46-116); ANION GAP 16 (8-16); ASPARTATE AMINO TRANSFERASE 21 U/L (10-37); BILIRUBIN,TOTAL 0.3 MG/DL (0.1-1.0); BLOOD UREA NITROGEN 9 MG/DL (7-18); BUN/CREATININE RATIO 12.9 (10.0-20.0); CALCIUM 8.3 MG/DL (8.5-10.1); CHLORIDE 106 MMOL/L (99-107); GLUCOSE 97 MG/DL (70-104); POTASSIUM 3.1 MMOL/L (3.5-5.1); SODIUM 142 MMOL/L (135-145); TOTAL CARBON DIOXIDE 19.7 MMOL/L (24-32); TOTAL PROTEIN 7.1 G/DL (6.4-8.2); eCRCL 88 ML/MIN; eGFR 86 ML/MIN
[2023-08-05 05:13] LABS: ETHANOL 262 MG/DL (<10); PRO BRAIN NATRIURETIC PEPTIDE 102 PG/ML (0-125); SALICYLATE 4.3 MG/DL (4.0-20.0); THYROID STIMULATING HORMONE 27.67 ulU/ml (0.34-4.50)
[2023-08-05 05:14] LABS: ACETAMINOPHEN < 2.0 UG/ML (10-30)
[2023-08-05] MEDS ORDERED: potassium Cl 20 mEq SR tablet PO STA (05:43)
[2023-08-05] MEDS ORDERED: LidoCAINE 2% Topical Jelly 11mL syringe TOP ONE ×2 (06:30→11:05)
[2023-08-05 06:43] LABS: URINE AMPHETAMINE SCREEN NEGATIVE (Neg); URINE BARBITUATE SCREEN NEGATIVE (Neg); URINE BENZODIAZEPINES SCREEN NEGATIVE (Neg); URINE CANNABINOID SCREEN NEGATIVE (Neg); URINE COCAINE SCREEN NEGATIVE (Neg); URINE METHADONE SCREEN NEGATIVE (Neg); URINE OPIATE SCREEN NEGATIVE (Neg); URINE PHENCYCLIDINE SCREEN NEGATIVE (Neg)
[2023-08-05 06:53] LABS: MAGNESIUM 1.8 MG/DL (1.5-2.4)
[2023-08-05] MEDS ORDERED: normal saline 1000ML IV soln IVB ONE ×2 (09:50→11:00)
[2023-08-05 10:07] LABS: ACETAMINOPHEN < 2.0 UG/ML (10-30); ALANINE AMINOTRANSFERASE 17 U/L (12-78); ALBUMIN 2.7 G/DL (3.4-5.0); ALBUMIN/GLOBULIN RATIO 0.9 (1.1-1.5); ALKALINE PHOSPHATASE 84 IU/L (46-116); ANION GAP 12 (8-16); ASPARTATE AMINO TRANSFERASE 14 U/L (10-37); BILIRUBIN,TOTAL 0.3 MG/DL (0.1-1.0); BLOOD UREA NITROGEN 7 MG/DL (7-18); BUN/CREATININE RATIO 10.3 (10.0-20.0); CALCIUM 7.1 MG/DL (8.5-10.1); CHLORIDE 114 MMOL/L (99-107); CREATININE 0.68 MG/DL (0.40-0.90); ETHANOL 165 MG/DL (<10); GLUCOSE 101 MG/DL (70-104); POTASSIUM 3.4 MMOL/L (3.5-5.1); SALICYLATE 3.6 MG/DL (4.0-20.0); SODIUM 148 MMOL/L (135-145); TOTAL CARBON DIOXIDE 21.6 MMOL/L (24-32); TOTAL PROTEIN 5.7 G/DL (6.4-8.2); eCRCL 91 ML/MIN; eGFR 89 ML/MIN
[2023-08-05] MEDS ORDERED: acetaminophen 325mg tablet PO PRN ×2 (11:05)
[2023-08-05] MEDS ORDERED: morphine 4 MG/ML inj SYRINge IV PRN (11:05)
[2023-08-05] MEDS ORDERED: ondansetron/PF 4mg/2ml inj IV PRN (11:05)
[2023-08-05] MEDS ORDERED: magnesium hydroxide 30ml (MOM) UD suspension PO PRN (11:05)
[2023-08-05] MEDS: ringers solution, lacted 1,000 ML IV SCH ×2 (11:10→17:11)
[2023-08-05 11:28] LABS: FREE T4 (FREE THYROXINE) 0.65 NG/DL (0.73-1.40)
[2023-08-05] MEDS ORDERED: thiamine 100mg/ml 2ml inj. IM ONE (11:35)
[2023-08-05] MEDS ORDERED: thiamine 100mg/ml 2ml inj. IV ONE (12:10)
[2023-08-05] MEDS ORDERED: magnesium 4gm in 100ml NS 100 ML IV PRN (12:40)
[2023-08-05] MEDS ORDERED: potassium Cl 20 mEq SR tablet PO PRN ×2 (12:40)
[2023-08-05] MEDS ORDERED: magnesium 2GM in 50ml NS 50 ML IV PRN (12:40)
[2023-08-05] MEDS: apixaban 5mg tablet PO SCH (20:34)
[2023-08-05] MEDS ORDERED: LORazepam 2 mg/ml vial IV PRN (21:05)
[2023-08-06] VITALS (19 sets, daily range): BP systolic 121–158; BP diastolic 50–88; PULSE 66–96; RESP 11–29; O2SAT 93–99
[2023-08-06] MEDS: ringers solution, lacted 1,000 ML IV SCH (00:04)
[2023-08-06] MEDS: morphine 2 MG/ML inj. syringe IV PRN ×3 (02:37→19:09)
[2023-08-06 06:23] LABS: BASOPHILS % (AUTO) 0.6 % (0-1); EOSINOPHILS # (AUTO) 0.1 X10'3 (0-0.9); EOSINOPHILS % (AUTO) 2.5 % (0-6); HEMATOCRIT 33.4 % (35.0-45.0); LYMPHOCYTES # (AUTO) 1.8 X10'3 (1.1-4.8); LYMPHOCYTES % (AUTO) 31.3 % (21-51); MEAN CORPUSCULAR HEMOGLOBIN 28.2 PG (27.0-31.0); MEAN CORPUSCULAR VOLUME 85.3 FL (78-98); MONOCYTES # (AUTO) 0.5 X10'3 (0-0.9); MONOCYTES % (AUTO) 8.4 % (2-12); NEUTROPHILS # (AUTO) 3.3 X10'3 (1.8-7.7); NEUTROPHILS % (AUTO) 57.2 % (42-75); PLATELET COUNT 122 X10'3 (140-440); RED BLOOD COUNT 3.91 X10'6 (4.20-5.60); RED CELL DISTRIBUTION WIDTH 15.6 % (11.5-14.5); WHITE BLOOD COUNT 5.7 X10'3 (4.5-11.0)
[2023-08-06 06:29] LABS: INR 1.1 INR; PROTHROMBIN TIME 11.4 SECONDS (9.0-12.0)
[2023-08-06 06:39] LABS: ALANINE AMINOTRANSFERASE 17 U/L (12-78); ALBUMIN 2.6 G/DL (3.4-5.0); ALBUMIN/GLOBULIN RATIO 0.9 (1.1-1.5); ALKALINE PHOSPHATASE 88 IU/L (46-116); AMYLASE 34 U/L (25-115); ANION GAP 9 (8-16); ASPARTATE AMINO TRANSFERASE 15 U/L (10-37); BILIRUBIN,TOTAL 0.7 MG/DL (0.1-1.0); BLOOD UREA NITROGEN 10 MG/DL (7-18); CALCIUM 7.9 MG/DL (8.5-10.1); CHLORIDE 112 MMOL/L (99-107); CREATININE 0.77 MG/DL (0.40-0.90); GLUCOSE 83 MG/DL (70-104); LIPASE 10 U/L (16-77); MAGNESIUM 1.7 MG/DL (1.5-2.4); PHOSPHORUS 3.2 MG/DL (2.3-4.5); POTASSIUM 3.9 MMOL/L (3.5-5.1); SODIUM 144 MMOL/L (135-145); TOTAL CARBON DIOXIDE 22.8 MMOL/L (24-32); TOTAL PROTEIN 5.4 G/DL (6.4-8.2); eCRCL 80 ML/MIN; eGFR 77 ML/MIN
[2023-08-06] MEDS: apixaban 5mg tablet PO SCH ×2 (07:24→19:09)
[2023-08-06] MEDS: levoTHYROXINE 175mcg tablet PO SCH (07:24)
[2023-08-06] MEDS: venlafaxine XR 75mg capsule (Q24H) PO SCH (07:24)
[2023-08-06] MEDS: K and/or MAG REPLACEMENT MC SCH (08:00)
[2023-08-06] MEDS ORDERED: FLU VACC QS2023-24(6MOS UP)/PF 60 MCG/0.5 ML SYRINGE IM ONE (12:00)
[2023-08-06] MEDS ORDERED: LORazepam 2 mg/ml vial IV PRN (14:50)
[2023-08-06] MEDS ORDERED: haloperidol lactate 5mg/ml inj IM PRN (14:50)
[2023-08-06] MEDS ORDERED: haloperidol 5mg tablet PO PRN (14:50)
[2023-08-06] MEDS: LORazepam 1 MG tablet PO PRN (19:10)
[2023-08-06] MEDS: thiamine 100mg/ml 2ml inj. IV SCH (21:32)
[2023-08-07] VITALS (7 sets, daily range): BP systolic 109–152; BP diastolic 53–63; PULSE 63–71; RESP 13–24; O2SAT 93–98
[2023-08-07] MEDS: morphine 2 MG/ML inj. syringe IV PRN ×2 (02:50→19:31)
[2023-08-07 06:16] LABS: PROTHROMBIN TIME 11.1 SECONDS (9.0-12.0)
[2023-08-07 06:28] LABS: BASOPHILS # (AUTO) 0.1 X10'3 (0-0.2); BASOPHILS % (AUTO) 1.4 % (0-1); EOSINOPHILS # (AUTO) 0.1 X10'3 (0-0.9); EOSINOPHILS % (AUTO) 2.3 % (0-6); HEMATOCRIT 35.5 % (35.0-45.0); HEMOGLOBIN 11.5 g/dl (12.0-16.0); LYMPHOCYTES # (AUTO) 1.5 X10'3 (1.1-4.8); LYMPHOCYTES % (AUTO) 26.5 % (21-51); MEAN CORPUSCULAR HEMOGLOBIN 27.6 PG (27.0-31.0); MEAN CORPUSCULAR HGB CONC 32.3 g/dL (33.0-36.5); MEAN CORPUSCULAR VOLUME 85.3 FL (78-98); MEAN PLATELET VOLUME 9.2 FL (7.4-10.4); MONOCYTES # (AUTO) 0.5 X10'3 (0-0.9); MONOCYTES % (AUTO) 8.9 % (2-12); NEUTROPHILS # (AUTO) 3.5 X10'3 (1.8-7.7); NEUTROPHILS % (AUTO) 60.9 % (42-75); PLATELET COUNT 120 X10'3 (140-440); RED BLOOD COUNT 4.16 X10'6 (4.20-5.60); RED CELL DISTRIBUTION WIDTH 15.3 % (11.5-14.5); WHITE BLOOD COUNT 5.8 X10'3 (4.5-11.0)
[2023-08-07 06:29] LABS: ALANINE AMINOTRANSFERASE 13 U/L (12-78); ALBUMIN 2.8 G/DL (3.4-5.0); ALBUMIN/GLOBULIN RATIO 0.9 (1.1-1.5); ALKALINE PHOSPHATASE 114 IU/L (46-116); AMYLASE 32 U/L (25-115); ANION GAP 7 (8-16); ASPARTATE AMINO TRANSFERASE 20 U/L (10-37); BILIRUBIN,TOTAL 0.9 MG/DL (0.1-1.0); BLOOD UREA NITROGEN 9 MG/DL (7-18); BUN/CREATININE RATIO 12.5 (10.0-20.0); CALCIUM 8.4 MG/DL (8.5-10.1); CHLORIDE 108 MMOL/L (99-107); CREATININE 0.72 MG/DL (0.40-0.90); GLUCOSE 94 MG/DL (70-104); LIPASE 10 U/L (16-77); MAGNESIUM 1.7 MG/DL (1.5-2.4); POTASSIUM 4.1 MMOL/L (3.5-5.1); SODIUM 140 MMOL/L (135-145); TOTAL PROTEIN 5.9 G/DL (6.4-8.2); eCRCL 86 ML/MIN; eGFR 83 ML/MIN
[2023-08-07] MEDS: venlafaxine XR 75mg capsule (Q24H) PO SCH (07:10)
[2023-08-07] MEDS: levoTHYROXINE 175mcg tablet PO SCH (07:10)
[2023-08-07] MEDS: multivitamins, therapeutics tablet PO SCH (07:10)
[2023-08-07] MEDS: apixaban 5mg tablet PO SCH ×2 (07:10→19:30)
[2023-08-07] MEDS: folic acid 1mg/0.2ml inj IV SCH (07:11)
[2023-08-07] MEDS: thiamine 100mg/ml 2ml inj. IV SCH ×3 (07:11→19:30)
[2023-08-07] MEDS: K and/or MAG REPLACEMENT MC SCH (08:00)
[2023-08-07] MEDS: LORazepam 1 MG tablet PO PRN ×2 (10:50→19:30)
[2023-08-08] MEDS: LORazepam 1 MG tablet PO PRN ×2 (00:03→07:17)
[2023-08-08] MEDS: morphine 2 MG/ML inj. syringe IV PRN ×2 (00:04→05:39)
[2023-08-08 00:06] LABS: URINE HCG NEGATIVE (NEG)
[2023-08-08 00:08] VITALS: BP 138/63; PULSE 75; RESP 16; O2SAT 98
[2023-08-08 00:45] LABS: BILIRUBIN,URINE NEGATIVE (Neg); CLARITY,URINE CLEAR (Clear); COLOR,URINE STRAW (Yellow); GLUCOSE, URINE NEGATIVE (Neg); KETONES,URINE NEGATIVE (Neg); LEUKOCYTE ESTERASE ,URINE NEGATIVE (Neg); NITRITES, URINE NEGATIVE (Neg); OCCULT BLOOD,URINE NEGATIVE (Neg); PROTEIN,URINE NEGATIVE (Neg); UROBILINOGEN,URINE 0.2 E.U/dL (0.2-1.0)
[2023-08-08 00:49] LABS: UA COLLECTION TYPE NON-SPECIFIED
[2023-08-08 04:00] VITALS: BP 128/69; PULSE 70; RESP 16; O2SAT 95
[2023-08-08 06:18] LABS: BASOPHILS # (AUTO) 0.1 X10'3 (0-0.2); BASOPHILS % (AUTO) 1.1 % (0-1); EOSINOPHILS # (AUTO) 0.2 X10'3 (0-0.9); EOSINOPHILS % (AUTO) 2.6 % (0-6); HEMOGLOBIN 11.7 g/dl (12.0-16.0); LYMPHOCYTES # (AUTO) 1.9 X10'3 (1.1-4.8); LYMPHOCYTES % (AUTO) 26.5 % (21-51); MEAN CORPUSCULAR HGB CONC 32.5 g/dL (33.0-36.5); MEAN CORPUSCULAR VOLUME 86.1 FL (78-98); MEAN PLATELET VOLUME 9.1 FL (7.4-10.4); MONOCYTES # (AUTO) 0.6 X10'3 (0-0.9); MONOCYTES % (AUTO) 8.8 % (2-12); NEUTROPHILS # (AUTO) 4.3 X10'3 (1.8-7.7); PLATELET COUNT 133 X10'3 (140-440); RED BLOOD COUNT 4.19 X10'6 (4.20-5.60); RED CELL DISTRIBUTION WIDTH 15.3 % (11.5-14.5); WHITE BLOOD COUNT 7.1 X10'3 (4.5-11.0)
[2023-08-08 06:19] LABS: INR 1.1 INR; PROTHROMBIN TIME 11.3 SECONDS (9.0-12.0)
[2023-08-08 06:29] LABS: ALANINE AMINOTRANSFERASE 14 U/L (12-78); ALBUMIN 2.8 G/DL (3.4-5.0); ALBUMIN/GLOBULIN RATIO 0.9 (1.1-1.5); ALKALINE PHOSPHATASE 104 IU/L (46-116); AMYLASE 32 U/L (25-115); ANION GAP 7 (8-16); ASPARTATE AMINO TRANSFERASE 17 U/L (10-37); BILIRUBIN,TOTAL 0.6 MG/DL (0.1-1.0); BLOOD UREA NITROGEN 12 MG/DL (7-18); BUN/CREATININE RATIO 15.6 (10.0-20.0); CALCIUM 8.5 MG/DL (8.5-10.1); CHLORIDE 107 MMOL/L (99-107); CREATININE 0.77 MG/DL (0.40-0.90); GLUCOSE 89 MG/DL (70-104); LIPASE 10 U/L (16-77); MAGNESIUM 1.7 MG/DL (1.5-2.4); PHOSPHORUS 4.6 MG/DL (2.3-4.5); POTASSIUM 3.8 MMOL/L (3.5-5.1); SODIUM 142 MMOL/L (135-145); THYROID STIMULATING HORMONE 34.63 ulU/ml (0.34-4.50); TOTAL CARBON DIOXIDE 27.6 MMOL/L (24-32); TOTAL PROTEIN 5.9 G/DL (6.4-8.2); eCRCL 80 ML/MIN; eGFR 77 ML/MIN
[2023-08-08] MEDS: thiamine 100mg/ml 2ml inj. IV SCH ×2 (07:15→13:00)
[2023-08-08] MEDS: multivitamins, therapeutics tablet PO SCH (07:15)
[2023-08-08] MEDS: folic acid 1mg/0.2ml inj IV SCH (07:15)
[2023-08-08] MEDS: venlafaxine XR 75mg capsule (Q24H) PO SCH (07:15)
[2023-08-08] MEDS: levoTHYROXINE 175mcg tablet PO SCH (07:15)
[2023-08-08] MEDS: apixaban 5mg tablet PO SCH (07:15)
[2023-08-08 08:00] VITALS: BP 124/62; PULSE 90; RESP 16; O2SAT 95
[2023-08-08] MEDS: K and/or MAG REPLACEMENT MC SCH (08:00)
[2023-08-08 08:50] VITALS: RESP 16; O2SAT 95
[2023-08-08 12:00] VITALS: BP_SYST 124; BP_SYST 130; BP_DIAS 57; BP_DIAS 62; PULSE 77; RESP 16; O2SAT 93
[2023-08-08] MEDS ORDERED: thiamine tablet PO (12:24)
[2023-08-08] MEDS ORDERED: MULT-25 PO ×2 (12:24→15:06)
[2023-08-08] MEDS ORDERED: FOLI1TAB27 PO (12:24)
[2023-08-08] MEDS ORDERED: VENL150C4 PO (15:00)
[2023-08-08] MEDS ORDERED: LEVO175T37 PO (15:00)
[2023-08-08] MEDS ORDERED: THIA100T70 PO (15:06)
[2023-08-08] MEDS ORDERED: FOLI0.4T6 PO (15:06)
[2023-08-10] MEDS ORDERED: thiamine 100mg tablet PO SCH (08:00)
[2023-08-11] MEDS ORDERED: folic acid 1mg tablet PO SCH (08:00)
== END 2023-08-08 14:09 | DRG 817 ==
LOC: ER 04:27 → ED HOLD 11:08 → CICU 2S 13:16
PROVIDERS: ADMIT Internal Medicine Critical Care Medicine; ATTEND Internal Medicine Critical Care Medicine
DX: T43.592A Poisoning by other antipsychotics and neuroleptics, intentional self-harm, initial encounter (principal); G92.8 Other toxic encephalopathy; T68.XXXA Hypothermia, initial encounter; I95.9 Hypotension, unspecified; T38.1X2A Poisoning by thyroid hormones and substitutes, intentional self-harm, initial encounter; F32.9 Major depressive disorder, single episode, unspecified; F10.929 Alcohol use, unspecified with intoxication, unspecified; Y90.8 Blood alcohol level of 240 mg/100 ml or more; E03.9 Hypothyroidism, unspecified; Z20.822 Contact with and (suspected) exposure to COVID-19; T39.392A Poisoning by other nonsteroidal anti-inflammatory drugs [NSAID], intentional self-harm, initial encounter; F17.210 Nicotine dependence, cigarettes, uncomplicated; R00.1 Bradycardia, unspecified; E03.8 Other specified hypothyroidism; R94.31 Abnormal electrocardiogram [ECG] [EKG]; Y92.89 Other specified places as the place of occurrence of the external cause; Z98.84 Bariatric surgery status; Z88.6 Allergy status to analgesic agent; Z79.899 Other long term (current) drug therapy; Z91.51 Personal history of suicidal behavior; Z90.49 Acquired absence of other specified parts of digestive tract; Z90.710 Acquired absence of both cervix and uterus; Z86.718 Personal history of other venous thrombosis and embolism; Z86.711 Personal history of pulmonary embolism
CPT/HCPCS: 36415; 70450; 71045; 80053; 80305; 80320; 80329; 81003; 81025; 82150; 83605; 83690; 83735; 83880; 84100; 84439; 84443; 84484; 85025; 85610; 87040; 87081; 87811; 90686; 99285; A4615; A6213; C1758; G0378; J2270; J2405; J3411; J3475; J3490; J7030; J7120

== ENCOUNTER 2023-08-08 12:56 | Inpatient (IN) | payer MEDICAID ==
[~2023-08-08] VITALS: Ht 172.7 cm; Wt 105.8 kg
[~2023-08-08 12:56] MED LIST changes: +FOLI1TAB27 PO; +MULT-25 PO; +thiamine tablet PO
[2023-08-08 14:00] VITALS: BP 137/74; PULSE 79; RESP 16; TEMP 97; O2SAT 96
[2023-08-08 14:55] VITALS: RESP 16; O2SAT 96
[2023-08-08] MEDS ORDERED: VENL150C4 PO (15:00)
[2023-08-08] MEDS ORDERED: LEVO175T37 PO (15:00)
[2023-08-08] MEDS ORDERED: MULT-25 PO (15:06)
[2023-08-08] MEDS ORDERED: THIA100T70 PO (15:06)
[2023-08-08] MEDS ORDERED: FOLI0.4T6 PO (15:06)
[2023-08-08] MEDS ORDERED: loperamide 2mg capsule PO PRN (16:20)
[2023-08-08] MEDS ORDERED: magnesium hydroxide 30ml (MOM) UD suspension PO PRN (16:20)
[2023-08-08] MEDS ORDERED: acetaminophen 325mg tablet PO PRN (16:20)
[2023-08-08] MEDS ORDERED: mag hydrox/Alum hydrox/simeth 30ml oral suspension PO PRN (16:20)
[2023-08-08] MEDS: acetaminophen 325mg tablet PO PRN (16:32)
[2023-08-08] MEDS: LORazepam 1 MG tablet PO PRN (16:35)
[2023-08-08] MEDS ORDERED: pneumococcal 23-VAL P-sac vacc 25 mcg/0.5ml vial IMVAC ONE (17:00)
[2023-08-08 19:35] VITALS: BP 124/76; PULSE 67; RESP 18; TEMP 96.7; O2SAT 98
[2023-08-08] MEDS: traZODone 50mg tablet PO SCH (20:15)
[2023-08-08] MEDS: apixaban 5mg tablet PO SCH (20:15)
[2023-08-09] MEDS: LORazepam 1 MG tablet PO PRN ×3 (00:40→19:46)
[2023-08-09 07:00] VITALS: RESP 18; O2SAT 96
[2023-08-09] MEDS: levoTHYROXINE 175mcg tablet PO SCH (07:31)
[2023-08-09] MEDS: acetaminophen 325mg tablet PO PRN (07:33)
[2023-08-09 08:00] VITALS: BP 136/73; PULSE 64; RESP 18; TEMP 98; O2SAT 96
[2023-08-09] MEDS ORDERED: folic acid 0.4mg tablet PO SCH (08:00)
[2023-08-09] MEDS ORDERED: multivitamins, therapeutics tablet PO SCH (08:00)
[2023-08-09] MEDS ORDERED: venlafaxine XR 75mg capsule (Q24H) PO SCH (08:00)
[2023-08-09 08:16] LABS: CHOL/HDL RATIO 2.2 (0.00-4.99); CHOLESTEROL 185 MG/DL (0-200); HDL CHOLESTEROL 85 MG/DL (35-60); LDL CHOLESTEROL 81 MG/DL (50-100); TRIGLYCERIDES 67 MG/DL (20-135)
[2023-08-09] MEDS: folic acid 1mg tablet PO SCH (08:47)
[2023-08-09] MEDS: apixaban 5mg tablet PO SCH ×2 (08:47→19:46)
[2023-08-09] MEDS: multivitamins, therapeutics tablet PO SCH (08:47)
[2023-08-09] MEDS: thiamine 100mg tablet PO SCH (08:47)
[2023-08-09 08:58] LABS: HEMOGLOBIN A1C 5.3 % (4.5-6.2)
[2023-08-09] MEDS ORDERED: pneumococcal 23-VAL P-sac vacc 25 mcg/0.5ml vial IMVAC ONE (11:00)
[2023-08-09 19:30] VITALS: RESP 16; O2SAT 99
[2023-08-09] MEDS ORDERED: HYDROcodone/acetaminophen 5mg/325mg tablet PO ONE (19:30)
[2023-08-09 19:43] VITALS: BP 150/69; PULSE 93; RESP 16; TEMP 97.4; O2SAT 99
[2023-08-09] MEDS: traZODone 50mg tablet PO SCH (19:47)
[2023-08-09] MEDS ORDERED: traZODone 50mg tablet PO SCH (21:00)
[2023-08-10] MEDS: LORazepam 1 MG tablet PO PRN ×4 (00:30→17:26)
[2023-08-10] MEDS: acetaminophen 325mg tablet PO PRN ×2 (04:19→17:27)
[2023-08-10 07:02] LABS: BASOPHILS % (AUTO) 0.6 % (0-1); EOSINOPHILS # (AUTO) 0.2 X10'3 (0-0.9); EOSINOPHILS % (AUTO) 2.5 % (0-6); HEMATOCRIT 36.9 % (35.0-45.0); HEMOGLOBIN 12.1 g/dl (12.0-16.0); LYMPHOCYTES # (AUTO) 1.6 X10'3 (1.1-4.8); LYMPHOCYTES % (AUTO) 23.6 % (21-51); MEAN CORPUSCULAR HGB CONC 32.8 g/dL (33.0-36.5); MEAN CORPUSCULAR VOLUME 85.3 FL (78-98); MEAN PLATELET VOLUME 8.8 FL (7.4-10.4); MONOCYTES # (AUTO) 0.7 X10'3 (0-0.9); MONOCYTES % (AUTO) 9.9 % (2-12); NEUTROPHILS # (AUTO) 4.2 X10'3 (1.8-7.7); NEUTROPHILS % (AUTO) 63.4 % (42-75); PLATELET COUNT 135 X10'3 (140-440); RED BLOOD COUNT 4.33 X10'6 (4.20-5.60); RED CELL DISTRIBUTION WIDTH 15.6 % (11.5-14.5); WHITE BLOOD COUNT 6.6 X10'3 (4.5-11.0)
[2023-08-10 07:45] LABS: ALANINE AMINOTRANSFERASE 15 U/L (12-78); ALBUMIN/GLOBULIN RATIO 0.9 (1.1-1.5); ALKALINE PHOSPHATASE 97 IU/L (46-116); ANION GAP 9 (8-16); ASPARTATE AMINO TRANSFERASE 17 U/L (10-37); BILIRUBIN,TOTAL 0.5 MG/DL (0.1-1.0); BLOOD UREA NITROGEN 20 MG/DL (7-18); BUN/CREATININE RATIO 22.5 (10.0-20.0); CALCIUM 8.7 MG/DL (8.5-10.1); CHLORIDE 106 MMOL/L (99-107); CREATININE 0.89 MG/DL (0.40-0.90); FREE T4 (FREE THYROXINE) 0.66 NG/DL (0.73-1.40); GLUCOSE 98 MG/DL (70-104); SODIUM 142 MMOL/L (135-145); THYROID STIMULATING HORMONE 28.19 ulU/ml (0.34-4.50); TOTAL CARBON DIOXIDE 27.5 MMOL/L (24-32); TOTAL PROTEIN 6.3 G/DL (6.4-8.2); eCRCL 70 ML/MIN; eGFR 65 ML/MIN
[2023-08-10] MEDS: levoTHYROXINE 175mcg tablet PO SCH (07:47)
[2023-08-10] MEDS: multivitamins, therapeutics tablet PO SCH (07:47)
[2023-08-10] MEDS: folic acid 1mg tablet PO SCH (07:47)
[2023-08-10] MEDS: apixaban 5mg tablet PO SCH ×2 (07:47→20:00)
[2023-08-10] MEDS: thiamine 100mg tablet PO SCH (07:47)
[2023-08-10 08:00] VITALS: BP 143/71; PULSE 74; RESP 12; TEMP 97; O2SAT 100
[2023-08-10] MEDS ORDERED: venlafaxine XR 75mg capsule (Q24H) PO SCH (08:00)
[2023-08-10] MEDS ORDERED: ibuprofen tablet 400 MG TABLET PO PRN (12:35)
[2023-08-10] MEDS ORDERED: VENL150C58 PO (17:20)
[2023-08-10] MEDS ORDERED: TRAZ-251 PO (17:20)
== END 2023-08-10 20:05 | disposition home or self-care (01) | DRG 751 ==
LOC: ADULT MH 14:02
PROVIDERS: ADMIT Psychiatry & Neurology Psychiatry; ATTEND Psychiatry & Neurology Psychiatry
DX: F33.2 Major depressive disorder, recurrent severe without psychotic features (principal); R45.851 Suicidal ideations; T50.992A Poisoning by other drugs, medicaments and biological substances, intentional self-harm, initial encounter; E03.9 Hypothyroidism, unspecified; F41.9 Anxiety disorder, unspecified; G89.29 Other chronic pain; M54.9 Dorsalgia, unspecified; F17.210 Nicotine dependence, cigarettes, uncomplicated; Z86.711 Personal history of pulmonary embolism; Z98.84 Bariatric surgery status; Z86.718 Personal history of other venous thrombosis and embolism; Z90.710 Acquired absence of both cervix and uterus; Z79.899 Other long term (current) drug therapy; Z90.49 Acquired absence of other specified parts of digestive tract; Y92.89 Other specified places as the place of occurrence of the external cause; Z85.43 Personal history of malignant neoplasm of ovary; Z83.3 Family history of diabetes mellitus; Z81.8 Family history of other mental and behavioral disorders; Z88.8 Allergy status to other drugs, medicaments and biological substances; T50.901A Poisoning by unspecified drugs, medicaments and biological substances, accidental (unintentional), initial encounter; T50.902A Poisoning by unspecified drugs, medicaments and biological substances, intentional self-harm, initial encounter
CPT/HCPCS: 36415; 80053; 80061; 83036; 83735; 84100; 84439; 84443; 85025; 87081; 90732

== ENCOUNTER 2023-10-17 16:28 | Inpatient (IN) | payer MEDICAID ==
[~2023-10-17] VITALS: Ht 170.2 cm; Wt 99.4 kg
[~2023-10-17 16:28] MED LIST changes: +LEVO175T37 PO; +THIA100T70 PO; +TRAZ-251 PO; -VENL150C4 PO; +VENL150C58 PO
[2023-10-17 17:31] LABS: BILIRUBIN,URINE NEGATIVE (Neg); CLARITY,URINE CLEAR (Clear); COLOR,URINE YELLOW (Yellow); GLUCOSE, URINE NEGATIVE (Neg); KETONES,URINE NEGATIVE (Neg); LEUKOCYTE ESTERASE ,URINE NEGATIVE (Neg); NITRITES, URINE NEGATIVE (Neg); OCCULT BLOOD,URINE NEGATIVE (Neg); PROTEIN,URINE NEGATIVE (Neg); UROBILINOGEN,URINE 0.2 E.U/dL (0.2-1.0)
[2023-10-17 17:38] LABS: UA COLLECTION TYPE CLN CATCH MIDSTREAM
[2023-10-17 18:27] LABS: ANION GAP 12 (8-16); BLOOD UREA NITROGEN 10 MG/DL (7-18); BUN/CREATININE RATIO 12.3 (10.0-20.0); CALCIUM 8.9 MG/DL (8.5-10.1); CHLORIDE 108 MMOL/L (99-107); CREATININE 0.81 MG/DL (0.40-0.90); GLUCOSE 79 MG/DL (70-104); LIPASE 12 U/L (16-77); POTASSIUM 4.1 MMOL/L (3.5-5.1); SODIUM 145 MMOL/L (135-145); TOTAL CARBON DIOXIDE 25.3 MMOL/L (24-32); eCRCL 73 ML/MIN; eGFR 72 ML/MIN
[2023-10-17 18:30] LABS: BASOPHILS # (AUTO) 0.1 X10'3 (0-0.2); BASOPHILS % (AUTO) 0.6 % (0-1); EOSINOPHILS # (AUTO) 0.2 X10'3 (0-0.9); EOSINOPHILS % (AUTO) 1.8 % (0-6); HEMATOCRIT 43.4 % (35.0-45.0); HEMOGLOBIN 14.1 g/dl (12.0-16.0); LYMPHOCYTES # (AUTO) 1.7 X10'3 (1.1-4.8); LYMPHOCYTES % (AUTO) 17.3 % (21-51); MEAN CORPUSCULAR HEMOGLOBIN 27.3 PG (27.0-31.0); MEAN CORPUSCULAR HGB CONC 32.5 g/dL (33.0-36.5); MEAN CORPUSCULAR VOLUME 84.1 FL (78-98); MEAN PLATELET VOLUME 9.9 FL (7.4-10.4); MONOCYTES # (AUTO) 0.9 X10'3 (0-0.9); MONOCYTES % (AUTO) 8.8 % (2-12); NEUTROPHILS # (AUTO) 7.1 X10'3 (1.8-7.7); NEUTROPHILS % (AUTO) 71.5 % (42-75); PLATELET COUNT 249 X10'3 (140-440); RED BLOOD COUNT 5.17 X10'6 (4.20-5.60); RED CELL DISTRIBUTION WIDTH 14.8 % (11.5-14.5); WHITE BLOOD COUNT 9.9 X10'3 (4.5-11.0)
[2023-10-17] MEDS ORDERED: iohexol 300mg/ml 100ml inj. ONE (20:37)
[2023-10-18] MEDS: ondansetron/PF 4mg/2ml inj IV ONE (00:13)
[2023-10-18] MEDS: morphine 4 MG/ML inj SYRINge IV ONE (00:13)
[2023-10-18] MEDS: pantoprazole 40MG/NS 100ML BAG 100 ML IV ONE (00:26)
[2023-10-18] MEDS: normal saline 1000ml 1,000 ML IV SCH ×2 (01:00→05:16)
[2023-10-18 01:01] LABS: APTT 25 SECONDS (22-32); PROTHROMBIN TIME 10.7 SECONDS (9.0-12.0)
[2023-10-18] MEDS ORDERED: bisacodyl 10mg suppository rectal RC PRN (02:30)
[2023-10-18] MEDS ORDERED: morphine 2 MG/ML inj. syringe IV PRN (02:30)
[2023-10-18] MEDS ORDERED: magnesium hydroxide 30ml (MOM) UD suspension PO PRN (02:30)
[2023-10-18] MEDS ORDERED: acetaminophen 325mg tablet PO PRN ×2 (02:30)
[2023-10-18] MEDS ORDERED: acetaminophen 650mg rectal suppository RC PRN (02:30)
[2023-10-18] MEDS ORDERED: HYDROcodone/acetaminophen 5mg/325mg tablet PO PRN (02:30)
[2023-10-18] MEDS: HYDROcodone/acetaminophen 10/325mg tab PO PRN (03:26)
[2023-10-18] MEDS: pantoprazole 40mg Tablet.DR PO SCH (07:50)
[2023-10-18] MEDS: nicotine 21mg patch - 24 hr TD SCH (08:00)
[2023-10-18 08:13] LABS: PHOSPHORUS 4.1 MG/DL (2.3-4.5); PRO BRAIN NATRIURETIC PEPTIDE 113 PG/ML (0-125)
[2023-10-18] MEDS: docusate sod 100mg capsule PO SCH (09:42)
[2023-10-18] MEDS: heparin, porcine 5000 units/ml vial SQ SCH (09:44)
[2023-10-18 12:19] LABS: HEMOGLOBIN A1C 5.5 % (4.5-6.2)
[2023-10-18] MEDS: ondansetron 4mg rapidly disintigrating tab PO PRN (12:55)
[2023-10-18 19:55] VITALS: BP 157/72; PULSE 66; RESP 17; TEMP 98; O2SAT 100
[2023-10-18 20:00] VITALS: RESP 18; O2SAT 100
[2023-10-18] MEDS: temazepam 15mg capsule PO PRN (21:36)
[2023-10-18 22:00] VITALS: BP 124/59; PULSE 64; RESP 16; TEMP 97.2; O2SAT 95
[2023-10-19] VITALS (24 sets, daily range): BP systolic 124–169; BP diastolic 54–97; PULSE 64–90; RESP 14–22; TEMP 96.9–98.2; O2SAT 94–100
[2023-10-19] MEDS ORDERED: BUPIVAcaine 2.5mg/ml inj 50ml vial (contains preservative) ONE (06:35)
[2023-10-19] MEDS ORDERED: LAMO25TA5 PO (07:02)
[2023-10-19 07:39] LABS: BASOPHILS % (AUTO) 0.5 % (0-1); EOSINOPHILS # (AUTO) 0.1 X10'3 (0-0.9); EOSINOPHILS % (AUTO) 3.4 % (0-6); HEMATOCRIT 36.1 % (35.0-45.0); HEMOGLOBIN 11.5 g/dl (12.0-16.0); LYMPHOCYTES # (AUTO) 1.1 X10'3 (1.1-4.8); LYMPHOCYTES % (AUTO) 26.5 % (21-51); MEAN CORPUSCULAR HEMOGLOBIN 26.8 PG (27.0-31.0); MEAN CORPUSCULAR HGB CONC 31.8 g/dL (33.0-36.5); MEAN CORPUSCULAR VOLUME 84.3 FL (78-98); MEAN PLATELET VOLUME 9.4 FL (7.4-10.4); MONOCYTES # (AUTO) 0.4 X10'3 (0-0.9); NEUTROPHILS # (AUTO) 2.6 X10'3 (1.8-7.7); NEUTROPHILS % (AUTO) 59.6 % (42-75); PLATELET COUNT 165 X10'3 (140-440); RED BLOOD COUNT 4.28 X10'6 (4.20-5.60); RED CELL DISTRIBUTION WIDTH 14.5 % (11.5-14.5); WHITE BLOOD COUNT 4.3 X10'3 (4.5-11.0)
[2023-10-19] MEDS ORDERED: sevoflurane 250ml liquid IH ONE (08:21)
[2023-10-19] MEDS ORDERED: rocuronium 10mg/ml inj IV ONE ×2 (08:21→08:23)
[2023-10-19] MEDS ORDERED: midazolam 1 mg/ML 2ml injection ONE (08:22)
[2023-10-19] MEDS ORDERED: propofol inj 20 ML IV ONE (08:23)
[2023-10-19] MEDS ORDERED: fentaNYL /PF 50mcg/ml 5ml ampule ONE (08:23)
[2023-10-19 08:35] LABS: ALANINE AMINOTRANSFERASE 17 U/L (12-78); ALBUMIN 3.1 G/DL (3.4-5.0); ALKALINE PHOSPHATASE 106 IU/L (46-116); ANION GAP 8 (8-16); ASPARTATE AMINO TRANSFERASE 18 U/L (10-37); BILIRUBIN,TOTAL 0.6 MG/DL (0.1-1.0); BLOOD UREA NITROGEN 5 MG/DL (7-18); BUN/CREATININE RATIO 6.7 (10.0-20.0); CHLORIDE 111 MMOL/L (99-107); CHOL/HDL RATIO 2.5 (0.00-4.99); CHOLESTEROL 181 MG/DL (0-200); CREATININE 0.75 MG/DL (0.40-0.90); GLUCOSE 93 MG/DL (70-104); HDL CHOLESTEROL 71 MG/DL (35-60); LDL CHOLESTEROL 77 MG/DL (50-100); POTASSIUM 3.8 MMOL/L (3.5-5.1); SODIUM 146 MMOL/L (135-145); TOTAL CARBON DIOXIDE 27.4 MMOL/L (24-32); TOTAL PROTEIN 6.3 G/DL (6.4-8.2); TRIGLYCERIDES 177 MG/DL (20-135); eCRCL 79 ML/MIN; eGFR 79 ML/MIN
[2023-10-19] MEDS ORDERED: ceFAZolin 1000mg inj ONE ×2 (08:37)
[2023-10-19] MEDS ORDERED: dexamethasone sod phosphate 4mg/ml inj. ONE (08:37)
[2023-10-19] MEDS: BUPIVAcaine/PF 2.5 mg/ml (0.25%) 30ml vial IJ ONE (09:13)
[2023-10-19] MEDS ORDERED: morphine 2 MG/ML inj. syringe IV PRN (10:05)
[2023-10-19] MEDS ORDERED: labetalol 20mg/4ml (5mg/ml) syringe IV PRN (10:05)
[2023-10-19] MEDS ORDERED: proCHLORperazine 10 MG/2 ml inj IV PRN (10:05)
[2023-10-19] MEDS: ringers solution, lacted 1,000 ML IV SCH (10:05)
[2023-10-19] MEDS ORDERED: ondansetron/PF 4mg/2ml inj IV PRN (10:05)
[2023-10-19] MEDS ORDERED: enalaprilat dihydrate 2.5mg/2ml vial IV PRN (10:05)
[2023-10-19] MEDS ORDERED: meperidine/PF 25mg/ml syringe IV PRN ×2 (10:05)
[2023-10-19] MEDS ORDERED: acetaminophen 1,000mg/100ml IV 100 ML IV ONE (10:55)
[2023-10-19] MEDS ORDERED: ondansetron/PF 4mg/2ml inj ONE (10:55)
[2023-10-19] MEDS ORDERED: glycopyrrolate 0.2mg/ml inj ONE (10:57)
[2023-10-19] MEDS ORDERED: neostigmine methylsulfate 1 MG/ML 10ml vial ONE (10:57)
[2023-10-19] MEDS ORDERED: naloxone 0.4 mg/ml inj IV PRN (11:20)
[2023-10-19] MEDS: meperidine/PF 25mg/ml syringe IV PRN (11:25)
[2023-10-19] MEDS: morphine 4 MG/ML inj SYRINge IV PRN (11:58)
[2023-10-19] MEDS: HYDROmorphone inj. 0.5 MG/0.5 ML DISP.SYRIN IV PRN (13:36)
[2023-10-19] MEDS: vancomycin/NS 1 GM ADD-VANTAGE 250 ML IV SCH (19:28)
[2023-10-19] MEDS: traZODone 50mg tablet PO SCH (21:00)
[2023-10-20] VITALS (7 sets, daily range): BP systolic 108–139; BP diastolic 46–68; PULSE 73–83; RESP 14–20; TEMP 97–98.9; O2SAT 93–98
[2023-10-20] MEDS: morphine 2 MG/ML inj. syringe IV PRN (02:12)
[2023-10-20] MEDS: HYDROmorphone 1 mg/ml syringe IM ONE (04:02)
[2023-10-20 06:43] LABS: BASOPHILS % (AUTO) 0.4 % (0-1); EOSINOPHILS # (AUTO) 0.1 X10'3 (0-0.9); EOSINOPHILS % (AUTO) 0.7 % (0-6); HEMATOCRIT 34.4 % (35.0-45.0); HEMOGLOBIN 11.1 g/dl (12.0-16.0); LYMPHOCYTES # (AUTO) 1.2 X10'3 (1.1-4.8); LYMPHOCYTES % (AUTO) 12.4 % (21-51); MEAN CORPUSCULAR HGB CONC 32.3 g/dL (33.0-36.5); MEAN CORPUSCULAR VOLUME 83.6 FL (78-98); MEAN PLATELET VOLUME 9.2 FL (7.4-10.4); NEUTROPHILS # (AUTO) 7.3 X10'3 (1.8-7.7); NEUTROPHILS % (AUTO) 76.5 % (42-75); PLATELET COUNT 155 X10'3 (140-440); RED BLOOD COUNT 4.11 X10'6 (4.20-5.60); RED CELL DISTRIBUTION WIDTH 14.6 % (11.5-14.5); WHITE BLOOD COUNT 9.6 X10'3 (4.5-11.0)
[2023-10-20 07:30] LABS: ALANINE AMINOTRANSFERASE 14 U/L (12-78); ALBUMIN 2.7 G/DL (3.4-5.0); ALBUMIN/GLOBULIN RATIO 0.8 (1.1-1.5); ALKALINE PHOSPHATASE 93 IU/L (46-116); ANION GAP 12 (8-16); ASPARTATE AMINO TRANSFERASE 15 U/L (10-37); BILIRUBIN,TOTAL 0.6 MG/DL (0.1-1.0); BLOOD UREA NITROGEN 4 MG/DL (7-18); BUN/CREATININE RATIO 5.9 (10.0-20.0); CALCIUM 7.8 MG/DL (8.5-10.1); CHLORIDE 111 MMOL/L (99-107); CREATININE 0.68 MG/DL (0.40-0.90); GLUCOSE 86 MG/DL (70-104); POTASSIUM 3.6 MMOL/L (3.5-5.1); SODIUM 148 MMOL/L (135-145); TOTAL CARBON DIOXIDE 25.1 MMOL/L (24-32); TOTAL PROTEIN 5.9 G/DL (6.4-8.2); eCRCL 87 ML/MIN; eGFR 89 ML/MIN
[2023-10-20] MEDS: levoTHYROXINE 175mcg tablet PO SCH (08:00)
[2023-10-20] MEDS: lamoTRIgine 25mg tablet PO SCH (09:18)
[2023-10-20] MEDS ORDERED: naloxone 0.4 mg/ml inj IV PRN (12:10)
[2023-10-20] MEDS ORDERED: HYDROmorph/NS 0.2 mg/ml PCA 100 ML IV SCH (13:00)
[2023-10-20] MEDS: venlafaxine XR 75mg capsule (Q24H) PO SCH (13:27)
[2023-10-20] MEDS: ceFOXitin 2GM-NS 100mL ADDvant 100 ML IV SCH (13:28)
[2023-10-20] MEDS: normal saline 1000ml 1,000 ML IV SCH (13:28)
[2023-10-20] MEDS: HYDROmorph/NS 0.2 mg/ml PCA 100 ML IV SCH (13:53)
[2023-10-20] MEDS: ondansetron/PF 4mg/2ml inj IV PRN (17:49)
[2023-10-20] MEDS: sodium chloride 0.45% 1,000 ML IV SCH (22:28)
[2023-10-21 01:52] VITALS: BP 104/45; PULSE 88; RESP 18; TEMP 97.5; O2SAT 91
[2023-10-21 05:53] LABS: EOSINOPHILS # (AUTO) 0.2 X10'3 (0-0.9); HEMOGLOBIN 10.9 g/dl (12.0-16.0); WHITE BLOOD COUNT 6.4 X10'3 (4.5-11.0)
[2023-10-21 05:56] LABS: BASOPHILS % (AUTO) 0.4 % (0-1); EOSINOPHILS % (AUTO) 2.8 % (0-6); HEMATOCRIT 33.9 % (35.0-45.0); LYMPHOCYTES # (AUTO) 0.8 X10'3 (1.1-4.8); LYMPHOCYTES % (AUTO) 12.4 % (21-51); MEAN CORPUSCULAR VOLUME 84.3 FL (78-98); MEAN PLATELET VOLUME 9.3 FL (7.4-10.4); MONOCYTES # (AUTO) 0.6 X10'3 (0-0.9); MONOCYTES % (AUTO) 9.9 % (2-12); NEUTROPHILS # (AUTO) 4.8 X10'3 (1.8-7.7); NEUTROPHILS % (AUTO) 74.5 % (42-75); PLATELET COUNT 152 X10'3 (140-440); RED BLOOD COUNT 4.02 X10'6 (4.20-5.60); RED CELL DISTRIBUTION WIDTH 14.7 % (11.5-14.5)
[2023-10-21 06:17] LABS: ALANINE AMINOTRANSFERASE 15 U/L (12-78); ALBUMIN 2.8 G/DL (3.4-5.0); ALBUMIN/GLOBULIN RATIO 0.9 (1.1-1.5); ALKALINE PHOSPHATASE 90 IU/L (46-116); ANION GAP 12 (8-16); ASPARTATE AMINO TRANSFERASE 16 U/L (10-37); BILIRUBIN,TOTAL 0.6 MG/DL (0.1-1.0); BLOOD UREA NITROGEN 4 MG/DL (7-18); BUN/CREATININE RATIO 4.8 (10.0-20.0); CALCIUM 7.8 MG/DL (8.5-10.1); CHLORIDE 108 MMOL/L (99-107); CREATININE 0.83 MG/DL (0.40-0.90); GLUCOSE 61 MG/DL (70-104); POTASSIUM 3.4 MMOL/L (3.5-5.1); SODIUM 145 MMOL/L (135-145); TOTAL PROTEIN 5.9 G/DL (6.4-8.2); eCRCL 71 ML/MIN; eGFR 70 ML/MIN
[2023-10-21 06:41] VITALS: BP 102/51; PULSE 88; RESP 16; TEMP 98.2; O2SAT 93
[2023-10-21 10:33] VITALS: RESP 18
[2023-10-21 10:40] VITALS: BP 105/51; PULSE 83; RESP 20; TEMP 97.9; O2SAT 94
[2023-10-21 19:00] VITALS: BP 106/42; PULSE 85; RESP 18; TEMP 97.6; O2SAT 97
[2023-10-21] MEDS: sodium chloride 0.45% 1,000 ML IV SCH (21:15)
[2023-10-21 22:00] VITALS: BP 127/49; PULSE 91; RESP 16; TEMP 96.5; O2SAT 93
[2023-10-22] MEDS: PCA WASTE DOCUMENTATION 1 MG ML MC SCH (01:55)
[2023-10-22] MEDS ORDERED: glucagon, human recombinant 1mg kit SUBCUT PRN (05:00)
[2023-10-22] MEDS ORDERED: dextrose 50%-water 50ml dispensing syringe IV PRN ×2 (05:00)
[2023-10-22] MEDS ORDERED: DEXTROSE 15 GM of carb/4 tabs (each vial/BOTTLE has 4 tablets) PO PRN (05:00)
[2023-10-22] MEDS: dextrose 5%-1/2 normal saline 1,000 ML IV ONE (05:20)
[2023-10-22] MEDS: DEXTROSE 15 GM of carb/4 tabs (each vial/BOTTLE has 4 tablets) PO PRN (05:20)
[2023-10-22 06:00] VITALS: BP 117/56; PULSE 65; RESP 16; TEMP 96.7; O2SAT 94
[2023-10-22] MEDS: ondansetron/PF 4mg/2ml inj IV PRN (06:18)
[2023-10-22 07:01] VITALS: BP 158/71; PULSE 75; RESP 18; TEMP 96.9; O2SAT 99
[2023-10-22 07:20] LABS: BASOPHILS % (AUTO) 0.4 % (0-1); EOSINOPHILS # (AUTO) 0.2 X10'3 (0-0.9); EOSINOPHILS % (AUTO) 3.8 % (0-6); HEMATOCRIT 32.7 % (35.0-45.0); HEMOGLOBIN 10.7 g/dl (12.0-16.0); LYMPHOCYTES # (AUTO) 0.8 X10'3 (1.1-4.8); LYMPHOCYTES % (AUTO) 14.1 % (21-51); MEAN CORPUSCULAR HEMOGLOBIN 27.4 PG (27.0-31.0); MEAN CORPUSCULAR HGB CONC 32.5 g/dL (33.0-36.5); MEAN CORPUSCULAR VOLUME 84.2 FL (78-98); MEAN PLATELET VOLUME 8.8 FL (7.4-10.4); MONOCYTES # (AUTO) 0.6 X10'3 (0-0.9); MONOCYTES % (AUTO) 10.6 % (2-12); NEUTROPHILS # (AUTO) 3.8 X10'3 (1.8-7.7); NEUTROPHILS % (AUTO) 71.1 % (42-75); PLATELET COUNT 140 X10'3 (140-440); RED BLOOD COUNT 3.89 X10'6 (4.20-5.60); RED CELL DISTRIBUTION WIDTH 14.2 % (11.5-14.5); WHITE BLOOD COUNT 5.4 X10'3 (4.5-11.0)
[2023-10-22 07:39] LABS: ALBUMIN 2.6 G/DL (3.4-5.0); ANION GAP 7 (8-16); BILIRUBIN,TOTAL 0.5 MG/DL (0.1-1.0); BLOOD UREA NITROGEN 3 MG/DL (7-18); BUN/CREATININE RATIO 4.3 (10.0-20.0); CALCIUM 7.5 MG/DL (8.5-10.1); CHLORIDE 105 MMOL/L (99-107); GLUCOSE 126 MG/DL (70-104); POTASSIUM 3.1 MMOL/L (3.5-5.1); SODIUM 139 MMOL/L (135-145); TOTAL CARBON DIOXIDE 27.1 MMOL/L (24-32); TOTAL PROTEIN 5.7 G/DL (6.4-8.2); eCRCL 84 ML/MIN; eGFR 86 ML/MIN
[2023-10-22 07:40] LABS: ALANINE AMINOTRANSFERASE 14 U/L (12-78); ALBUMIN/GLOBULIN RATIO 0.8 (1.1-1.5); ALKALINE PHOSPHATASE 91 IU/L (46-116); ASPARTATE AMINO TRANSFERASE 16 U/L (10-37)
[2023-10-22 08:21] VITALS: RESP 16; O2SAT 94
[2023-10-22 11:00] VITALS: BP 126/80; PULSE 79; RESP 16; TEMP 98.3; O2SAT 94
[2023-10-22] MEDS: mag hydrox/Alum hydrox/simeth 30ml oral suspension PO PRN (17:23)
[2023-10-22 18:00] VITALS: BP 123/66; PULSE 79; RESP 14; TEMP 97.7; O2SAT 96
[2023-10-22] MEDS ORDERED: magnesium 4gm in 100ml NS 100 ML IV PRN (19:10)
[2023-10-22] MEDS ORDERED: magnesium 2GM in 50ml NS 50 ML IV PRN (19:10)
[2023-10-22] MEDS ORDERED: potassium Cl 40MEQ/1/2NS 520ml 520 ML IV PRN (19:10)
[2023-10-22] MEDS ORDERED: magnesium Cl slow-release 64mg tablet PO PRN (19:10)
[2023-10-22] MEDS ORDERED: potassium Cl 20 mEq SR tablet PO PRN (19:10)
[2023-10-22] MEDS: K and/or MAG REPLACEMENT MC SCH (20:00)
[2023-10-22] MEDS: potassium Cl 20 mEq SR tablet PO PRN (21:57)
[2023-10-23] VITALS (7 sets, daily range): BP systolic 125–134; BP diastolic 62–70; PULSE 67–80; RESP 16–18; TEMP 97.7–98.2; O2SAT 91–97
[2023-10-23 04:09] LABS: BASOPHILS # (AUTO) 0.1 X10'3 (0-0.2); BASOPHILS % (AUTO) 0.9 % (0-1); EOSINOPHILS # (AUTO) 0.2 X10'3 (0-0.9); EOSINOPHILS % (AUTO) 3.5 % (0-6); HEMATOCRIT 32.3 % (35.0-45.0); HEMOGLOBIN 10.6 g/dl (12.0-16.0); LYMPHOCYTES # (AUTO) 0.8 X10'3 (1.1-4.8); LYMPHOCYTES % (AUTO) 14.3 % (21-51); MEAN CORPUSCULAR HEMOGLOBIN 27.4 PG (27.0-31.0); MEAN CORPUSCULAR HGB CONC 32.7 g/dL (33.0-36.5); MEAN CORPUSCULAR VOLUME 83.8 FL (78-98); MEAN PLATELET VOLUME 9.2 FL (7.4-10.4); MONOCYTES # (AUTO) 0.7 X10'3 (0-0.9); MONOCYTES % (AUTO) 13.3 % (2-12); NEUTROPHILS # (AUTO) 3.8 X10'3 (1.8-7.7); PLATELET COUNT 132 X10'3 (140-440); RED BLOOD COUNT 3.86 X10'6 (4.20-5.60); RED CELL DISTRIBUTION WIDTH 14.6 % (11.5-14.5); WHITE BLOOD COUNT 5.6 X10'3 (4.5-11.0)
[2023-10-23 04:24] LABS: ALANINE AMINOTRANSFERASE 14 U/L (12-78); ALBUMIN 2.5 G/DL (3.4-5.0); ALBUMIN/GLOBULIN RATIO 0.8 (1.1-1.5); ALKALINE PHOSPHATASE 84 IU/L (46-116); ANION GAP 6 (8-16); ASPARTATE AMINO TRANSFERASE 15 U/L (10-37); BILIRUBIN,TOTAL 0.5 MG/DL (0.1-1.0); BLOOD UREA NITROGEN 0 MG/DL (7-18); CALCIUM 7.8 MG/DL (8.5-10.1); CHLORIDE 108 MMOL/L (99-107); CREATININE 0.79 MG/DL (0.40-0.90); GLUCOSE 87 MG/DL (70-104); POTASSIUM 3.4 MMOL/L (3.5-5.1); SODIUM 144 MMOL/L (135-145); TOTAL CARBON DIOXIDE 30.5 MMOL/L (24-32); TOTAL PROTEIN 5.6 G/DL (6.4-8.2); eCRCL 75 ML/MIN; eGFR 74 ML/MIN
[2023-10-23] MEDS: apixaban 5mg tablet PO SCH (08:42)
[2023-10-23] MEDS: oxyCODONE/APAP 5-325mg tablet PO PRN (14:24)
[2023-10-23] MEDS: magnesium hydroxide 30ml (MOM) UD suspension PO ONE (18:53)
[2023-10-24 04:15] LABS: ALBUMIN 2.3 G/DL (3.4-5.0); ANION GAP 4 (8-16); CHLORIDE 111 MMOL/L (99-107); CREATININE 0.83 MG/DL (0.40-0.90); GLUCOSE 83 MG/DL (70-104); POTASSIUM 3.7 MMOL/L (3.5-5.1); SODIUM 147 MMOL/L (135-145); TOTAL CARBON DIOXIDE 32.3 MMOL/L (24-32); eCRCL 71 ML/MIN; eGFR 70 ML/MIN
[2023-10-24 04:24] LABS: BLOOD UREA NITROGEN 0 MG/DL (7-18)
[2023-10-24 10:00] VITALS: BP 128/56; PULSE 68; RESP 16; TEMP 98.2; O2SAT 96
[2023-10-24 15:50] VITALS: BP 108/51; PULSE 75; RESP 16; TEMP 97.7; O2SAT 93
== END 2023-10-24 16:52 | disposition home or self-care (01) | DRG 227 ==
LOC: ER 16:29 → ED HOLD 10-18 02:40 → ORTHO 4S 10-18 19:55 → PACU 10-19 10:17 → ORTHO 4S 10-19 12:45 → SUR 3N 10-20 17:50
PROVIDERS: ADMIT Family Medicine; ATTEND Family Medicine
PROC: BW211ZZ Computerized Tomography (CT Scan) of Abdomen and Pelvis using Low Osmolar Contrast (ICD-10-PCS; 2023-10-17)
PROC: 8E0W4CZ Robotic Assisted Procedure of Trunk Region, Percutaneous Endoscopic Approach (ICD-10-PCS; 2023-10-19)
PROC: 0DNW4ZZ Release Peritoneum, Percutaneous Endoscopic Approach (ICD-10-PCS; 2023-10-19)
PROC: 0WUF4JZ Supplement Abdominal Wall with Synthetic Substitute, Percutaneous Endoscopic Approach (ICD-10-PCS; principal; 2023-10-19 08:21)
DX: K43.6 Other and unspecified ventral hernia with obstruction, without gangrene (principal); D68.9 Coagulation defect, unspecified; E03.9 Hypothyroidism, unspecified; F41.9 Anxiety disorder, unspecified; M54.9 Dorsalgia, unspecified; K52.9 Noninfective gastroenteritis and colitis, unspecified; E66.9 Obesity, unspecified; K66.0 Peritoneal adhesions (postprocedural) (postinfection); F32.A Depression, unspecified; G89.29 Other chronic pain; Z79.01 Long term (current) use of anticoagulants; Z79.899 Other long term (current) drug therapy; Z86.711 Personal history of pulmonary embolism; Z88.8 Allergy status to other drugs, medicaments and biological substances; Z98.84 Bariatric surgery status; Z90.49 Acquired absence of other specified parts of digestive tract; Z86.718 Personal history of other venous thrombosis and embolism; Z85.43 Personal history of malignant neoplasm of ovary; Z68.34 Body mass index [BMI] 34.0-34.9, adult; Z72.0 Tobacco use
CPT/HCPCS: 36415; 71045; 74177; 80048; 80053; 80061; 81003; 82948; 83036; 83690; 83735; 83880; 84100; 84443; 84484; 85025; 85610; 85730; 87081; 93005; 97116; 97161; 97530; 99285; A4215; A4314; A4615; A4618; C1758; C1781; G0378; J0131; J0690; J0694; J1100; J1170; J1644; J2175; J2250; J2270; J2405; J2704; J2710; J3010; J3370; J3490; J7030; Q9967

== ENCOUNTER 2025-01-26 23:12 | Emergency (ER) | payer MEDICAID ==
[~2025-01-26] VITALS: Ht 172.7 cm; Wt 68.9 kg
[~2025-01-26 23:12] MED LIST changes: -FOLI1TAB27 PO; +LAMO25TA5 PO; -LEVO200T42 PO; -thiamine tablet PO
--- NOTE | 2025-01-27 00:31 | RADIOLOGY REPORT ---
Procedure: DI CHEST,TWO VIEWS 01/26/2025 11:59 PM Indication: MECHANICAL FALL ON LEFT SIDE Comparison: None TECHNIQUE: DI CHEST,TWO VIEWS FINDINGS: Medical devices: None. Cardiomediastinal: The heart is normal in size. Pulmonary vasculature is within normal limits. Lungs: No focal pulmonary opacity is seen. The costophrenic angles are clear. No pneumothorax. Bones/soft tissues: No acute abnormality is noted. IMPRESSION: No acute cardiopulmonary disease.
[2025-01-27] MEDS: acetaminophen 325mg tablet PO ONE (02:57)
--- NOTE | 2025-01-27 03:13 | Physician Documentation ---
History of Present Illness ~ Chief Complaint: Mechanical Fall Stated Complaint: RIB PAIN/HEAD PAIN FROM FALL Time Seen by MD: 02:53 Primary Medical Doctor: Dr. Aguirre HPI Patient presents to the emergency room with left-sided rib pain after a fall w hile drinking the previous night. Patient took 400 mg of ibuprofen at about 11:00 a.m. and then about a 1000 mg of Tylenol at about 6:00 p.m.. She went to work and was still having significant discomfort therefore was directed to come to the emergency room for evaluation by her boss. Tetanus within 5 Years?: No (unknown) Medication Reconciliation Allergies: Coded Allergies: naproxen (Verified Allergy, Severe, MOUTH SWELLING, 09/20/22) Scheduled Apixaban (Eliquis), 1 TAB PO BID, (Reported) Lamotrigine (Lamotrigine), 2 TAB PO DAILY, (Reported) Levothyroxine Sodium (Levoxyl), 1 TAB PO DAILY, (Reported) Multivitamin with Folic Acid (Thera Tablet), 1 EACH PO Q24H Thiamine Mononitrate (Vitamin B-1), 1 TAB PO DAILY, (Reported) Trazodone HCl (Trazodone HCl), 100 MG PO HSMR1 Venlafaxine Hcl (Venlafaxine Hcl Er), 2 CAP PO DAILY Past Medical History Past Medical History: Pulmonary Embolism, *GI/HEPATOBILIARY*, Bowel Obstruction, Cholelithiasis, Hernia, Thyroid (unspecified), Chronic Back Pain, Deep Vein Thrombosis, Ovarian Cancer, Anxiety, Depression Past Surgical History: abdominal surgery, cancer surgery, cholecystectomy, gastric bypass, other Other Past Surgical History: Hernia repair Patient History: Anxiety disorder MOTHER FH: cancer MOTHER FH: heart failure FATHER FH: hyperlipidemia FATHER FH: hypertension MOTHER FH: schizophrenia MOTHER FHx: diabetes mellitus FATHER Alcohol Use: Rarely Drug Use: none Lives with: Spouse Lives In: Home Review of Systems ROS All review of systems negative except as per HPI Physical Exam Vital Signs: Temperature: 98.2, Source: Temporal, Heart Rate: 89, Respiratory Rate: 18, BP: 142/73, Pulse Oximetry: 99, Weight: 68.900 Oxygen Flow Rate: 0 Physical Exam General: Patient is awake, alert, oriented x4 in no acute distress Head: Normocephalic and atraumatic. Eyes: Conjunctival normal. EOMI. PERRL. ENT: Mucous membranes moist. Neck: Supple, trachea is midline. Chest: Clear to auscultation bilaterally without rales, rhonchi, or wheezes. There is no accessory muscle use or retractions. Some mild bruising noted at the left axillary ribs. Associated tenderness to palpation Cardiac: RRR without murmurs, gallops, or rubs. Progress Results/Orders Results/Orders Orders - NICOLA MONTANEZ MD Chest,Two Views (01/26/25 23:25) Completed Orders - NICOLA MONTANEZ MD Chest,Two Views (01/26/25 23:25) Acetaminophen 325mg Tablet (Tylenol Tabl (01/27/25 02:52) Medications Received in ER Medications (Trade) Dose Ordered Sig/David Route PRN Reason Start Time Stop Time Status Last Admin Dose Admin (Tylenol tablet) 650 mg ONCE ONCE PO 01/27/25 02:52 01/27/25 02:53 DC 01/27/25 02:57 650 MG Vital Signs 01/26/25 23:20 Temp 98.2 Pulse 89 Resp 18 B/P (MAP) 142/73 Pulse Ox 99 O2 Flow Rate 0 EKG/XRAY/CT/US/VASC/MRI Chest X-Ray : Additional Comments Exam: CHEST,TWO VIEWS Procedure: DI CHEST,TWO VIEWS 01/26/2025 11:59 PM Indication: MECHANICAL FALL ON LEFT SIDE Comparison: None TECHNIQUE: DI CHEST,TWO VIEWS FINDINGS: Medical devices: None. Cardiomediastinal: The heart is normal in size. Pulmonary vasculature is within normal limits. Lungs: No focal pulmonary opacity is seen. The costophrenic angles are clear. No pneumothorax. Bones/soft tissues: No acute abnormality is noted. IMPRESSION: No acute cardiopulmonary disease. Medical Decision Making Findings Patient presents to the emergency room with rib pain. Differentials include but are not limited to fractures, pneumothorax, soft tissue injury, lung puncture. Chest x-ray performed which was reassuring for no abnormality/fracture. Patient may have suffered a cracked rib however symptoms would be controlled with pain management and this was discussed with patient. Departure Disposition: 01 HOME / SELF CARE / HOMELESS Impression: Primary Impression: Rib pain Condition: Stable Discharge Instructions: Rib Contusion Additional Instructions: Ibuprofen 600 mg may be taken together with Tylenol 1000 mg every 6 hours. And we will prescribe you pain medication only and to be taken if ibuprofen and Tylenol are insufficient. Keep in mind that has 325 mg of Tylenol in a [place] tablet and do not go over 1000 mg every [address] if taking [place]. Referrals: NO PRIMARY CARE PROVIDER (PCP) Prescriptions Hydrocodone Bit/Acetaminophen 5/325 MG ([place] 5/325 MG) 5 Mg/325 Mg Tablet 1-2 TAB PO Q4-6 hours PRN for pain, #20 TAB Prov: NICOLA MONTANEZ MD 01/27/25 Education Educated: Patient Educated regarding: diagnosis, treatment, need for follow up Signature Scribe Signature: No scribe Attestation: The note accurately reflects work and decisions made by me.Nicola Montanez MD 01/27/25 03:14 NICOLA MONTANEZ MD Jan 27, 2025 03:13
[2025-01-27] MEDS ORDERED: HYDR-3965 PO (03:14)
[2025-01-27] MEDS: HYDROcodone/acetaminophen 5mg/325mg tablet PO ONE (03:41)
[2025-01-27 03:50] VITALS: BP 140/70; PULSE 86; RESP 16; TEMP 98.6; O2SAT 99
== END 2025-01-27 03:53 | disposition home or self-care (01) ==
LOC: ER 23:12
DX: R07.81 Pleurodynia (principal); F41.9 Anxiety disorder, unspecified; F32.A Depression, unspecified; Z85.43 Personal history of malignant neoplasm of ovary; Z88.6 Allergy status to analgesic agent; Z90.49 Acquired absence of other specified parts of digestive tract; Z98.84 Bariatric surgery status; Z98.890 Other specified postprocedural states
CPT/HCPCS: 71046; 99283